=== PATIENT | female | born 1945 | race Caucasian/White ===

== ENCOUNTER 2022-07-24 18:31 | Emergency (ER) | payer OTHER ==
[2022-07-24 19:17] VITALS: BP 159/70; PULSE 83; RESP 15; TEMP 98.4; BMI 26.4
[2022-07-24] MEDS ORDERED: ACETAMINOPHEN 325 MG TABLET (FP) PO ONE (19:55)
[2022-07-24] MEDS ORDERED: ACETAMINOPHEN 325 MG TABLET (FP) ONE (21:21)
[2022-07-24 21:38] LABS: BASO % 0.3 % (0-2.0); EOS % 0.6 % (0-4.5); HEMATOCRIT 33.6 % (32.4-45.2); HEMOGLOBIN 11.1 GM/dL (10.7-15.3); LYMPH % 9.1 % (8-40); MCH 27.3 pg (25.7-33.7); MCHC 32.9 g/dl (32.0-36.0); MEAN CELL VOLUME 82.8 fl (80-96); MEAN PLT VOLUME 6.5 fl (7.5-11.1); MONO % 5.8 % (3.8-10.2); NEUT % 84.2 % (42.8-82.8); PLATELET COUNT 223 10^3/uL (134-434); RBC 4.06 M/mm3 (3.60-5.2); RDW 15.5 % (11.6-15.6); WHITE BLOOD COUNT 12.6 K/mm3 (4.0-10.0)
[2022-07-24 21:56] LABS: ALBUMIN 2.9 g/dl (3.4-5.0); BLOOD UREA NITROGEN 75.4 mg/dL (7-18); CALCIUM 8.8 mg/dL (8.5-10.1)
[2022-07-24 22:01] LABS: BILIRUBIN,TOTAL 0.4 mg/dL (0.2-1); TOT PROT 6.7 g/dl (6.4-8.2)
== END 2022-07-24 23:31 | disposition left against medical advice (07) ==
LOC: JER 18:31
DX: N19 Unspecified kidney failure (principal); M25.571 Pain in right ankle and joints of right foot; R26.2 Difficulty in walking, not elsewhere classified; R60.0 Localized edema
CPT/HCPCS: 36415; 73610-TC-RT-FY; 73630-TC-RT-FY; 80053; 85025; 99284-25

== ENCOUNTER 2022-08-10 14:24 | Inpatient (IN) | payer OTHER ==
[2022-08-10 15:37] LABS: INR 1.09 (0.83-1.09); PROTHROMBIN TIME (PATIENT) 12.5 SEC (9.7-13.0)
[2022-08-10 15:41] LABS: HEMATOCRIT 31.6 % (32.4-45.2); HEMOGLOBIN 10.3 G/dL (10.7-15.3); MCHC 32.6 g/dl (32.0-36.0); MEAN PLT VOLUME 7.4 fl (7.5-11.1); PLATELET COUNT 201.4 10^3/uL (134-434); RBC 3.68 10^6/uL (3.60-5.2); RDW 15.2 % (11.6-15.6); WHITE BLOOD COUNT 10.7 10^3/uL (4.0-10.8)
[2022-08-10 15:49] LABS: ALBUMIN 3.1 g/dl (3.4-5.0); BILIRUBIN,TOTAL 0.4 mg/dl (0.2-1); CALCIUM 8.3 mg/dl (8.5-10); CREATININE 5.9 mg/dl (0.55-1.3); MAGNESIUM 2.3 mg/dL (1.8-2.4); PHOSPHOROUS 9.4 mg/dl (2.5-4.9); POTASSIUM 4.2 mmol/L (3.5-5.1); TOT PROT 6.8 g/dl (6.4-8.2)
[2022-08-10 16:29] LABS: EPITHELIAL CELLS MODERATE /hpf
[2022-08-10] MEDS ORDERED: SODIUM CHLORIDE 0.45% 1,000 ML IV SCH (21:45)
[2022-08-10] MEDS: hydrALAZINE HCL 50 MG TABLET (FP) PO SCH (22:03)
[2022-08-10] MEDS: HEPARIN NA (PORCINE) 5,000 UNITS/ML 1ML VIAL SQ SCH (22:04)
[2022-08-10] MEDS: CEFTRIAXONE 1 GM in DEXTROSE 5%-WATER - 50 ML IVPB SCH (22:04)
[2022-08-10] MEDS: ATORVASTATIN CA 80 MG TABLET (FP) PO SCH (22:14)
[2022-08-10] MEDS: INSULIN SLIDING SCALE (NOVOLOG) 1 VIAL SQ SCH (22:28)
[2022-08-11] MEDS: INSULIN SLIDING SCALE (NOVOLOG) 1 VIAL SQ SCH ×4 (06:16→22:00)
[2022-08-11 06:24] VITALS: BMI 32.8
[2022-08-11 10:06] LABS: CHLORIDE 117 mmol/L (98-107); POTASSIUM 4.4 mmol/L (3.5-5.1); SODIUM 144 mmol/L (136-145)
[2022-08-11 10:14] LABS: ALBUMIN 2.5 g/dl (3.4-5.0); ANION GAP 11 MMOL/L (8-16); CO2 16 mmol/L (21-32); GLUCOSE,RANDOM 80 mg/dL (74-106); MAGNESIUM 2.2 mg/dL (1.8-2.4)
[2022-08-11 10:17] LABS: PHOSPHOROUS 8.8 mg/dL (2.5-4.9); SGOT/AST 10 U/L (15-37); SGPT/ALT 12 U/L (13-61)
[2022-08-11 10:18] LABS: TOT PROT 5.9 g/dl (6.4-8.2)
[2022-08-11 10:19] LABS: BILIRUBIN,TOTAL 0.4 mg/dL (0.2-1)
[2022-08-11 10:20] LABS: ALK PHOS 69 U/L (45-117)
[2022-08-11 10:32] LABS: BLOOD UREA NITROGEN 117.5 mg/dL (7-18)
[2022-08-11 10:51] LABS: BASO % 0.4 % (0-2.0); EOS % 1.9 % (0-4.5); HEMATOCRIT 26.6 % (32.4-45.2); HEMOGLOBIN 9.1 GM/dL (10.7-15.3); MCH 28.5 pg (25.7-33.7); MCHC 34.2 g/dl (32.0-36.0); MEAN CELL VOLUME 83.2 fl (80-96); MEAN PLT VOLUME 6.5 fl (7.5-11.1); MONO % 4.2 % (3.8-10.2); NEUT % 80.5 % (42.8-82.8); PLATELET COUNT 191 10^3/uL (134-434); RDW 15.1 % (11.6-15.6); WHITE BLOOD COUNT 9.6 K/mm3 (4.0-10.0)
[2022-08-11] MEDS: PANTOPRAZOLE 40 MG TABLET PO SCH (12:30)
[2022-08-11] MEDS: NEBIVOLOL 5 MG TABLET (FP) PO SCH (12:30)
[2022-08-11] MEDS: HEPARIN NA (PORCINE) 5,000 UNITS/ML 1ML VIAL SQ SCH ×2 (12:30→21:26)
[2022-08-11] MEDS: CEFTRIAXONE 1 GM in DEXTROSE 5%-WATER - 50 ML IVPB SCH (12:30)
[2022-08-11] MEDS: hydrALAZINE HCL 50 MG TABLET (FP) PO SCH ×2 (12:30→21:26)
[2022-08-11] MEDS: SODIUM BICARBONATE 650 MG TABLET PO SCH ×2 (14:06→21:26)
[2022-08-11] MEDS: CALCIUM ACETATE 667 MG CAPSULE (FP) PO SCH (16:49)
[2022-08-11] MEDS: ATORVASTATIN CA 80 MG TABLET (FP) PO SCH (21:26)
[2022-08-12] MEDS: SODIUM BICARBONATE 650 MG TABLET PO SCH ×3 (05:36→21:57)
[2022-08-12] MEDS: INSULIN SLIDING SCALE (NOVOLOG) 1 VIAL SQ SCH ×4 (06:44→22:06)
[2022-08-12] MEDS: CALCIUM ACETATE 667 MG CAPSULE (FP) PO SCH ×3 (08:45→17:19)
[2022-08-12] MEDS: NEBIVOLOL 5 MG TABLET (FP) PO SCH (09:46)
[2022-08-12] MEDS: PANTOPRAZOLE 40 MG TABLET PO SCH (09:46)
[2022-08-12] MEDS: hydrALAZINE HCL 50 MG TABLET (FP) PO SCH ×2 (09:46→21:58)
[2022-08-12] MEDS: HEPARIN NA (PORCINE) 5,000 UNITS/ML 1ML VIAL SQ SCH ×2 (09:46→21:58)
[2022-08-12 10:14] LABS: HEMATOCRIT 29.1 % (32.4-45.2); HEMOGLOBIN 9.7 GM/dL (10.7-15.3); MCH 27.8 pg (25.7-33.7); MCHC 33.3 g/dl (32.0-36.0); MEAN CELL VOLUME 83.3 fl (80-96); MEAN PLT VOLUME 6.9 fl (7.5-11.1); PLATELET COUNT 219 10^3/uL (134-434); RBC 3.49 M/mm3 (3.60-5.2); RDW 15.4 % (11.6-15.6); WHITE BLOOD COUNT 9.7 K/mm3 (4.0-10.0)
[2022-08-12 10:36] LABS: CHLORIDE 120 mmol/L (98-107); POTASSIUM 4.3 mmol/L (3.5-5.1); SODIUM 145 mmol/L (136-145)
[2022-08-12 10:40] LABS: CALCIUM 8.5 mg/dL (8.5-10.1)
[2022-08-12 10:41] LABS: ALBUMIN 2.5 g/dl (3.4-5.0); ANION GAP 9 MMOL/L (8-16); CO2 16 mmol/L (21-32); GLUCOSE,RANDOM 95 mg/dL (74-106)
[2022-08-12 10:44] LABS: SGOT/AST 12 U/L (15-37); SGPT/ALT 12 U/L (13-61)
[2022-08-12 10:45] LABS: BILIRUBIN,TOTAL 0.3 mg/dL (0.2-1); TOT PROT 6.2 g/dl (6.4-8.2)
[2022-08-12 10:47] LABS: ALK PHOS 68 U/L (45-117)
[2022-08-12 11:06] LABS: BLOOD UREA NITROGEN 120.4 mg/dL (7-18); CREATININE 8.2 mg/dL (0.55-1.3)
[2022-08-12] MEDS ORDERED: SODIUM CHLORIDE 250 ML IV PRN (13:27)
[2022-08-12] MEDS: ATORVASTATIN CA 80 MG TABLET (FP) PO SCH (21:57)
[2022-08-13] MEDS: SODIUM BICARBONATE 650 MG TABLET PO SCH ×3 (05:56→22:51)
[2022-08-13] MEDS: INSULIN SLIDING SCALE (NOVOLOG) 1 VIAL SQ SCH ×4 (07:00→23:07)
[2022-08-13] MEDS: CALCIUM ACETATE 667 MG CAPSULE (FP) PO SCH ×3 (09:01→17:58)
[2022-08-13] MEDS: hydrALAZINE HCL 50 MG TABLET (FP) PO SCH ×2 (09:41→22:51)
[2022-08-13] MEDS: PANTOPRAZOLE 40 MG TABLET PO SCH (09:42)
[2022-08-13] MEDS: HEPARIN NA (PORCINE) 5,000 UNITS/ML 1ML VIAL SQ SCH ×2 (09:42→22:51)
[2022-08-13] MEDS: NEBIVOLOL 5 MG TABLET (FP) PO SCH (09:42)
[2022-08-13 11:22] LABS: HEMATOCRIT 28.1 % (32.4-45.2); HEMOGLOBIN 9.4 GM/dL (10.7-15.3); MCH 27.7 pg (25.7-33.7); MCHC 33.4 g/dl (32.0-36.0); MEAN CELL VOLUME 82.9 fl (80-96); MEAN PLT VOLUME 6.8 fl (7.5-11.1); PLATELET COUNT 175 10^3/uL (134-434); RBC 3.39 M/mm3 (3.60-5.2); RDW 14.9 % (11.6-15.6); WHITE BLOOD COUNT 9.7 K/mm3 (4.0-10.0)
[2022-08-13] MEDS ORDERED: INSULIN SLIDING SCALE (NOVOLOG) 1 VIAL SQ ONE ×2 (11:26→17:29)
[2022-08-13 11:39] LABS: POTASSIUM 3.3 mmol/L (3.5-5.1)
[2022-08-13 11:43] LABS: ALBUMIN 2.4 g/dl (3.4-5.0); CALCIUM 8.4 mg/dL (8.5-10.1)
[2022-08-13 11:46] LABS: CREATININE 5.5 mg/dL (0.55-1.3)
[2022-08-13 11:47] LABS: PHOSPHOROUS 4.1 mg/dL (2.5-4.9)
[2022-08-13 11:48] LABS: BILIRUBIN,TOTAL 0.6 mg/dL (0.2-1); TOT PROT 5.7 g/dl (6.4-8.2)
[2022-08-13 11:50] LABS: BLOOD UREA NITROGEN 66.1 mg/dL (7-18)
[2022-08-13] MEDS: ATORVASTATIN CA 80 MG TABLET (FP) PO SCH (22:51)
[2022-08-14] MEDS: SODIUM BICARBONATE 650 MG TABLET PO SCH ×3 (06:53→21:02)
[2022-08-14] MEDS: INSULIN SLIDING SCALE (NOVOLOG) 1 VIAL SQ SCH ×4 (07:44→21:02)
[2022-08-14] MEDS: CALCIUM ACETATE 667 MG CAPSULE (FP) PO SCH ×3 (09:01→17:21)
[2022-08-14] MEDS: PANTOPRAZOLE 40 MG TABLET PO SCH (09:02)
[2022-08-14] MEDS: NEBIVOLOL 5 MG TABLET (FP) PO SCH (09:02)
[2022-08-14] MEDS: hydrALAZINE HCL 50 MG TABLET (FP) PO SCH ×2 (09:02→21:02)
[2022-08-14] MEDS: HEPARIN NA (PORCINE) 5,000 UNITS/ML 1ML VIAL SQ SCH ×2 (09:03→21:02)
[2022-08-14 11:26] LABS: HEMATOCRIT 28.8 % (32.4-45.2); HEMOGLOBIN 9.6 GM/dL (10.7-15.3); MCH 27.9 pg (25.7-33.7); MCHC 33.3 g/dl (32.0-36.0); MEAN CELL VOLUME 83.6 fl (80-96); PLATELET COUNT 195 10^3/uL (134-434); RBC 3.45 M/mm3 (3.60-5.2); RDW 15.3 % (11.6-15.6)
[2022-08-14] MEDS ORDERED: SODIUM CHLORIDE 250 ML IV PRN (11:35)
[2022-08-14 12:06] LABS: POTASSIUM 3.6 mmol/L (3.5-5.1)
[2022-08-14 12:29] LABS: ALBUMIN 2.6 g/dl (3.4-5.0); BLOOD UREA NITROGEN 68.4 mg/dL (7-18)
[2022-08-14 12:32] LABS: CREATININE 6.2 mg/dL (0.55-1.3)
[2022-08-14 12:33] LABS: BILIRUBIN,TOTAL 0.4 mg/dL (0.2-1); TOT PROT 6.2 g/dl (6.4-8.2)
[2022-08-14] MEDS: ATORVASTATIN CA 80 MG TABLET (FP) PO SCH (21:02)
[2022-08-14 22:07] LABS: ANTIGLOMERULAR BASEMENT MEN.AB <0.2 units (0.0-0.9)
[2022-08-15] MEDS: SODIUM BICARBONATE 650 MG TABLET PO SCH ×3 (05:48→21:57)
[2022-08-15] MEDS: INSULIN SLIDING SCALE (NOVOLOG) 1 VIAL SQ SCH ×4 (06:09→21:57)
[2022-08-15] MEDS: CALCIUM ACETATE 667 MG CAPSULE (FP) PO SCH ×3 (09:03→18:13)
[2022-08-15] MEDS: PANTOPRAZOLE 40 MG TABLET PO SCH (09:44)
[2022-08-15] MEDS: hydrALAZINE HCL 50 MG TABLET (FP) PO SCH ×2 (09:44→21:57)
[2022-08-15] MEDS: NEBIVOLOL 5 MG TABLET (FP) PO SCH (09:56)
[2022-08-15] MEDS: HEPARIN NA (PORCINE) 5,000 UNITS/ML 1ML VIAL SQ SCH ×2 (10:01→21:57)
[2022-08-15] MEDS ORDERED: SODIUM CHLORIDE 250 ML IV PRN (14:43)
[2022-08-15 16:08] LABS: ATYPICAL pANCA <1:20 titer (Neg:<1:20); C-ANCA <1:20 titer (Neg:<1:20)
[2022-08-15] MEDS: ATORVASTATIN CA 80 MG TABLET (FP) PO SCH (21:57)
[2022-08-16] MEDS: SODIUM BICARBONATE 650 MG TABLET PO SCH ×3 (05:23→22:02)
[2022-08-16] MEDS: INSULIN SLIDING SCALE (NOVOLOG) 1 VIAL SQ SCH ×4 (06:14→22:10)
[2022-08-16 08:35] LABS: HEMATOCRIT 26.9 % (32.4-45.2); HEMOGLOBIN 9.2 GM/dL (10.7-15.3); MCH 28.4 pg (25.7-33.7); MCHC 34.2 g/dl (32.0-36.0); MEAN CELL VOLUME 83.3 fl (80-96); MEAN PLT VOLUME 7.2 fl (7.5-11.1); PLATELET COUNT 192 10^3/uL (134-434); RBC 3.24 M/mm3 (3.60-5.2); RDW 14.6 % (11.6-15.6); WHITE BLOOD COUNT 10.5 K/mm3 (4.0-10.0)
[2022-08-16 08:51] LABS: CALCIUM 8.6 mg/dL (8.5-10.1); POTASSIUM 3.8 mmol/L (3.5-5.1)
[2022-08-16 08:53] LABS: BLOOD UREA NITROGEN 48.8 mg/dL (7-18)
[2022-08-16 08:55] LABS: CREATININE 5.2 mg/dL (0.55-1.3)
[2022-08-16] MEDS: NEBIVOLOL 5 MG TABLET (FP) PO SCH (09:06)
[2022-08-16] MEDS: hydrALAZINE HCL 50 MG TABLET (FP) PO SCH ×2 (09:06→22:02)
[2022-08-16] MEDS: CALCIUM ACETATE 667 MG CAPSULE (FP) PO SCH ×3 (09:06→18:04)
[2022-08-16] MEDS: PANTOPRAZOLE 40 MG TABLET PO SCH (09:06)
[2022-08-16] MEDS: HEPARIN NA (PORCINE) 5,000 UNITS/ML 1ML VIAL SQ SCH ×2 (09:07→22:02)
[2022-08-16] MEDS ORDERED: LIDOCAINE HCL 1%, 10 MG/ML (10ML VIAL) MDV ONE (11:24)
[2022-08-16] MEDS ORDERED: MIDAZOLAM HCL 2 MG/2 ML SINGLE DOSE VIAL ONE (13:01)
[2022-08-16] MEDS ORDERED: ceFAZolin SODIUM 1 GM VIAL ONE (13:08)
[2022-08-16] MEDS ORDERED: LIDOCAINE HCL 1%, 10 MG/ML (50 mL VIAL) INF ONE (13:17)
[2022-08-16] MEDS ORDERED: PROPOFOL 20 ML ONE (13:21)
[2022-08-16] MEDS ORDERED: SODIUM CHLORIDE 250 ML IV PRN (14:30)
[2022-08-16] MEDS ORDERED: HEPARIN NA (PORCINE) 5,000 UNITS/ML 1ML VIAL IVPUSH ONE ×2 (14:43)
[2022-08-16] MEDS ORDERED: EPOETIN ALFA-EPBX 4,000 UNIT/ML VIAL SQ ONE ×3 (14:43→15:00)
[2022-08-16 15:11] VITALS: RESP 18
[2022-08-16] MEDS ORDERED: ATORVASTATIN CA 80 MG TABLET (FP) PO SCH (22:00)
[2022-08-17] MEDS: SODIUM BICARBONATE 650 MG TABLET PO SCH ×2 (05:22→15:19)
[2022-08-17] MEDS: INSULIN SLIDING SCALE (NOVOLOG) 1 VIAL SQ SCH ×3 (06:08→17:29)
[2022-08-17] MEDS: CALCIUM ACETATE 667 MG CAPSULE (FP) PO SCH ×3 (07:59→17:30)
[2022-08-17] MEDS: HEPARIN NA (PORCINE) 5,000 UNITS/ML 1ML VIAL SQ SCH (09:32)
[2022-08-17] MEDS: hydrALAZINE HCL 50 MG TABLET (FP) PO SCH (09:32)
[2022-08-17] MEDS ORDERED: PANTOPRAZOLE 40 MG TABLET PO SCH (10:00)
[2022-08-17] MEDS ORDERED: NEBIVOLOL 5 MG TABLET (FP) PO SCH (10:00)
[2022-08-17] MEDS ORDERED: SODIUM CHLORIDE 250 ML IV PRN (12:49)
[2022-08-17 18:20] VITALS: BP 144/64; PULSE 64; TEMP 98
== END 2022-08-17 19:12 | disposition home or self-care (01) | DRG 682 ==
LOC: FER 14:24 → J5S 21:31
PROVIDERS: ADMIT Family Medicine; ATTEND Family Medicine
PROC: 05HM33Z Insertion of Infusion Device into Right Internal Jugular Vein, Percutaneous Approach (ICD-10-PCS; principal; 2022-08-12)
PROC: B543ZZA Ultrasonography of Right Jugular Veins, Guidance (ICD-10-PCS; 2022-08-12)
PROC: 5A1D70Z Performance of Urinary Filtration, Intermittent, Less than 6 Hours Per Day (ICD-10-PCS; 2022-08-12)
PROC: 5A1D70Z Performance of Urinary Filtration, Intermittent, Less than 6 Hours Per Day (ICD-10-PCS; 2022-08-14)
PROC: 5A1D70Z Performance of Urinary Filtration, Intermittent, Less than 6 Hours Per Day (ICD-10-PCS; 2022-08-16)
PROC: 05HM33Z Insertion of Infusion Device into Right Internal Jugular Vein, Percutaneous Approach (ICD-10-PCS; 2022-08-16)
PROC: B513ZZA Fluoroscopy of Right Jugular Veins, Guidance (ICD-10-PCS; 2022-08-16)
PROC: 5A1D70Z Performance of Urinary Filtration, Intermittent, Less than 6 Hours Per Day (ICD-10-PCS; 2022-08-17)
DX: I12.0 Hypertensive chronic kidney disease with stage 5 chronic kidney disease or end stage renal disease (principal); N18.6 End stage renal disease; N17.9 Acute kidney failure, unspecified; E87.20 Acidosis, unspecified; I31.39 Other pericardial effusion (noninflammatory); N39.0 Urinary tract infection, site not specified; E11.22 Type 2 diabetes mellitus with diabetic chronic kidney disease; Z99.2 Dependence on renal dialysis; E78.5 Hyperlipidemia, unspecified; D64.9 Anemia, unspecified; R80.9 Proteinuria, unspecified; R93.1 Abnormal findings on diagnostic imaging of heart and coronary circulation; R76.0 Raised antibody titer; R82.71 Bacteriuria; B96.20 Unspecified Escherichia coli [E. coli] as the cause of diseases classified elsewhere; B95.2 Enterococcus as the cause of diseases classified elsewhere; B96.5 Pseudomonas (aeruginosa) (mallei) (pseudomallei) as the cause of diseases classified elsewhere; E66.9 Obesity, unspecified; Z68.32 Body mass index [BMI] 32.0-32.9, adult
CPT/HCPCS: 0241U-QW; 36415; 71045-TC-FY; 71250-TC; 74176-TC; 76000-TC-FY; 76775-TC; 76856-TC; 80048; 80053; 81003; 81015; 82962; 83516; 83520; 83735; 84100; 84155; 84165; 84443; 84484; 85025; 85027; 85610; 85651; 86038; 86140; 86160; 86225; 86235; 86256; 86704; 86705; 86803; 87040; 87086; 87186; 87340; 87517; 93005; 93306-TC; 93971-TC; 94760; 97116-GP; 97162-GP; 99285-25; C1750; J1644; Q5106

== ENCOUNTER 2022-09-01 21:27 | Observation (INO) | payer OTHER ==
[2022-09-01 21:37] VITALS: BMI 27.3
[2022-09-01 22:39] LABS: BASO % 0.4 % (0-2.0); EOS % 1.8 % (0-4.5); HEMATOCRIT 29.8 % (32.4-45.2); LYMPH % 17.8 % (8-40); MCH 28.7 pg (25.7-33.7); MCHC 33.5 g/dl (32.0-36.0); MEAN CELL VOLUME 85.7 fl (80-96); MEAN PLT VOLUME 7.4 fl (7.5-11.1); MONO % 6.3 % (3.8-10.2); NEUT % 73.7 % (42.8-82.8); PLATELET COUNT 253 10^3/uL (134-434); RBC 3.48 M/mm3 (3.60-5.2); RDW 15.3 % (11.6-15.6); WHITE BLOOD COUNT 10.4 K/mm3 (4.0-10.0)
[2022-09-02 00:24] LABS: ALBUMIN 3.1 g/dl (3.4-5.0); BILIRUBIN,TOTAL 0.7 mg/dL (0.2-1); BLOOD UREA NITROGEN 35.6 mg/dL (7-18); CALCIUM 8.8 mg/dL (8.5-10.1); CREATININE 5.2 mg/dL (0.55-1.3); POTASSIUM 4.8 mmol/L (3.5-5.1); TOT PROT 6.9 g/dl (6.4-8.2)
[2022-09-02 06:25] LABS: BASO % 0.7 % (0-2.0); EOS % 2.3 % (0-4.5); HEMATOCRIT 26.9 % (32.4-45.2); HEMOGLOBIN 9.3 GM/dL (10.7-15.3); LYMPH % 24.8 % (8-40); MCHC 34.5 g/dl (32.0-36.0); MEAN CELL VOLUME 84.3 fl (80-96); NEUT % 66.2 % (42.8-82.8); PLATELET COUNT 197 10^3/uL (134-434); RBC 3.19 M/mm3 (3.60-5.2); RDW 15.1 % (11.6-15.6); WHITE BLOOD COUNT 9.3 K/mm3 (4.0-10.0)
[2022-09-02 06:41] LABS: POTASSIUM 3.9 mmol/L (3.5-5.1)
[2022-09-02 06:45] LABS: BLOOD UREA NITROGEN 38.1 mg/dL (7-18); CALCIUM 8.9 mg/dL (8.5-10.1)
[2022-09-02 06:48] LABS: CREATININE 5.5 mg/dL (0.55-1.3)
[2022-09-02 06:49] LABS: BILIRUBIN,TOTAL 0.5 mg/dL (0.2-1); TOT PROT 6.4 g/dl (6.4-8.2)
[2022-09-02] MEDS ORDERED: hydrALAZINE HCL 50 MG TABLET (FP) PO SCH (10:00)
[2022-09-02] MEDS ORDERED: SODIUM CHLORIDE 250 ML IV PRN (11:02)
[2022-09-02] MEDS: hydrALAZINE HCL 50 MG TABLET (FP) PO SCH ×2 (12:20→21:54)
[2022-09-02] MEDS: ASPIRIN COATED 81 MG TABLET.EC PO SCH (12:23)
[2022-09-02] MEDS ORDERED: ALTEPLASE (CATHFLO) 2 MG/2 ML VIAL NR ONE ×2 (13:45)
[2022-09-02] MEDS: ATORVASTATIN CA 80 MG TABLET (FP) PO SCH (21:54)
[2022-09-03 08:58] LABS: BASO % 0.4 % (0-2.0); EOS % 2.2 % (0-4.5); HEMATOCRIT 28.8 % (32.4-45.2); HEMOGLOBIN 9.7 GM/dL (10.7-15.3); LYMPH % 18.4 % (8-40); MCH 28.6 pg (25.7-33.7); MCHC 33.6 g/dl (32.0-36.0); MEAN PLT VOLUME 6.9 fl (7.5-11.1); MONO % 5.3 % (3.8-10.2); NEUT % 73.7 % (42.8-82.8); PLATELET COUNT 198 10^3/uL (134-434); RBC 3.39 M/mm3 (3.60-5.2); RDW 15.4 % (11.6-15.6); WHITE BLOOD COUNT 10.5 K/mm3 (4.0-10.0)
[2022-09-03 09:18] LABS: POTASSIUM 3.8 mmol/L (3.5-5.1)
[2022-09-03 09:20] LABS: ALBUMIN 3.1 g/dl (3.4-5.0); CALCIUM 8.9 mg/dL (8.5-10.1)
[2022-09-03 09:23] LABS: CREATININE 4.1 mg/dL (0.55-1.3)
[2022-09-03 09:25] LABS: BILIRUBIN,TOTAL 0.5 mg/dL (0.2-1); TOT PROT 6.8 g/dl (6.4-8.2)
[2022-09-03] MEDS: ASPIRIN COATED 81 MG TABLET.EC PO SCH (10:08)
[2022-09-03] MEDS: hydrALAZINE HCL 50 MG TABLET (FP) PO SCH ×2 (10:08→22:05)
[2022-09-03] MEDS: ATORVASTATIN CA 80 MG TABLET (FP) PO SCH (22:05)
[2022-09-04 04:14] VITALS: RESP 18
[2022-09-04 08:31] VITALS: TEMP 98.4
[2022-09-04] MEDS: hydrALAZINE HCL 50 MG TABLET (FP) PO SCH (09:01)
[2022-09-04] MEDS: ASPIRIN COATED 81 MG TABLET.EC PO SCH (09:01)
[2022-09-04 14:35] VITALS: BP 118/51; PULSE 76
== END 2022-09-04 17:50 | disposition home health service (06) ==
LOC: JER 21:27 → JERBED 09-02 02:00 → INTOOBSV 09-02 02:00 → UNDOADMOB 09-02 02:00 → JERBED 09-02 04:00 → J4W 09-02 10:44
PROVIDERS: ADMIT Internal Medicine; ATTEND Family Medicine
DX: G93.41 Metabolic encephalopathy (principal); R41.82 Altered mental status, unspecified; E11.9 Type 2 diabetes mellitus without complications; N18.6 End stage renal disease; E78.5 Hyperlipidemia, unspecified; Z87.891 Personal history of nicotine dependence; Z99.2 Dependence on renal dialysis
CPT/HCPCS: 0241U-QW; 36415; 70450-TC; 71045-TC-FY; 80053; 82962; 83036; 85025; 86803; 87340; 93005; 93010; 97116-GP; 97162-GP; 99285-25; C9803-CS; G0378; J2997; U0003; U0005

== ENCOUNTER 2022-10-26 16:54 | Inpatient (IN) | payer OTHER ==
[2022-10-26 19:10] LABS: INR 2.09 (0.83-1.09); PROTHROMBIN TIME (PATIENT) 24.1 SEC (9.7-13.0)
[2022-10-26 19:19] LABS: BASO % 0.5 % (0-2.0); EOS % 0.3 % (0-4.5); HEMOGLOBIN 9.5 GM/dL (10.7-15.3); LYMPH % 10.3 % (8-40); MCH 28.2 pg (25.7-33.7); MCHC 32.7 g/dl (32.0-36.0); MEAN CELL VOLUME 86.1 fl (80-96); MEAN PLT VOLUME 6.8 fl (7.5-11.1); MONO % 3.8 % (3.8-10.2); NEUT % 85.1 % (42.8-82.8); PLATELET COUNT 309 10^3/uL (134-434); RBC 3.37 M/mm3 (3.60-5.2); RDW 15.2 % (11.6-15.6); WHITE BLOOD COUNT 14.7 K/mm3 (4.0-10.0)
[2022-10-26 19:36] LABS: CHLORIDE 97 mmol/L (98-107); SODIUM 139 mmol/L (136-145)
[2022-10-26 19:40] LABS: ALBUMIN 3.3 g/dl (3.4-5.0); ANION GAP 13 MMOL/L (8-16); BLOOD UREA NITROGEN 46.3 mg/dL (7-18); CALCIUM 9.7 mg/dL (8.5-10.1); CO2 30 mmol/L (21-32); GLUCOSE,RANDOM 92 mg/dL (74-106); MAGNESIUM 2.6 mg/dL (1.8-2.4)
[2022-10-26 19:43] LABS: PHOSPHOROUS 5.2 mg/dL (2.5-4.9); SGOT/AST 34 U/L (15-37); SGPT/ALT 19 U/L (13-61)
[2022-10-26 19:44] LABS: BILIRUBIN,TOTAL 0.4 mg/dL (0.2-1); TOT PROT 7.7 g/dl (6.4-8.2)
[2022-10-26 19:46] LABS: ALK PHOS 92 U/L (45-117)
[2022-10-26 19:58] LABS: CREATININE 7.8 mg/dL (0.55-1.3)
[2022-10-27 06:22] LABS: BASO % 0.7 % (0-2.0); EOS % 1.3 % (0-4.5); HEMATOCRIT 26.5 % (32.4-45.2); HEMOGLOBIN 8.7 GM/dL (10.7-15.3); LYMPH % 15.8 % (8-40); MCH 28.4 pg (25.7-33.7); MEAN CELL VOLUME 86.1 fl (80-96); MEAN PLT VOLUME 6.5 fl (7.5-11.1); MONO % 5.2 % (3.8-10.2); PLATELET COUNT 276 10^3/uL (134-434); RBC 3.08 M/mm3 (3.60-5.2); RDW 15.5 % (11.6-15.6); WHITE BLOOD COUNT 13.4 K/mm3 (4.0-10.0)
[2022-10-27 06:39] LABS: CHLORIDE 98 mmol/L (98-107); SODIUM 139 mmol/L (136-145)
[2022-10-27 06:40] LABS: CALCIUM 9.8 mg/dL (8.5-10.1)
[2022-10-27 06:41] LABS: ANION GAP 13 MMOL/L (8-16); BLOOD UREA NITROGEN 51.6 mg/dL (7-18); CO2 28 mmol/L (21-32); GLUCOSE,RANDOM 83 mg/dL (74-106)
[2022-10-27 06:51] LABS: CREATININE 8.4 mg/dL (0.55-1.3)
[2022-10-27] MEDS ORDERED: ASPIRIN COATED 81 MG TABLET.EC PO SCH (10:00)
[2022-10-27] MEDS: INSULIN SLIDING SCALE (NOVOLOG) 1 VIAL SQ SCH ×2 (12:12→21:57)
[2022-10-27] MEDS: ZINC OXIDE 20% TOPICAL OINTMENT 30 GM TUBE TP SCH ×2 (12:54→22:00)
[2022-10-27] MEDS: APIXABAN 5 MG TABLET PO SCH ×2 (12:55→21:54)
[2022-10-27] MEDS ORDERED: SODIUM CHLORIDE 250 ML IV PRN (13:33)
[2022-10-27] MEDS ORDERED: DEXTROSE 50%-WATER - 25 GM/50 ML VIAL IVPUSH PRN (14:14)
[2022-10-27] MEDS: AMINO ACIDS 4.25%/D5W 1,000 ML IV SCH (14:38)
[2022-10-27] MEDS ORDERED: ATORVASTATIN CA 80 MG TABLET (FP) PO SCH (22:00)
[2022-10-28] MEDS: AMINO ACIDS 4.25%/D5W 1,000 ML IV SCH ×3 (02:15→13:57)
[2022-10-28] MEDS: INSULIN SLIDING SCALE (NOVOLOG) 1 VIAL SQ SCH ×6 (06:38→22:09)
[2022-10-28] MEDS: FAMOTIDINE 20 MG TABLET PO SCH (07:53)
[2022-10-28 08:25] LABS: POTASSIUM 3.3 mmol/L (3.5-5.1)
[2022-10-28 08:31] LABS: BASO % 0.7 % (0-2.0); EOS % 1.8 % (0-4.5); HEMATOCRIT 24.7 % (32.4-45.2); LYMPH % 14.9 % (8-40); MCH 28.3 pg (25.7-33.7); MCHC 32.3 g/dl (32.0-36.0); MEAN CELL VOLUME 87.5 fl (80-96); MONO % 4.7 % (3.8-10.2); NEUT % 77.9 % (42.8-82.8); PLATELET COUNT 320 10^3/uL (134-434); RBC 2.82 M/mm3 (3.60-5.2); RDW 15.1 % (11.6-15.6); RETICULOCYTES 1.92 % (0.5-1.5)
[2022-10-28 08:35] LABS: ALBUMIN 2.8 g/dl (3.4-5.0); BLOOD UREA NITROGEN 29.8 mg/dL (7-18); CREATININE 4.4 mg/dL (0.55-1.3)
[2022-10-28 08:37] LABS: BILIRUBIN,TOTAL 0.5 mg/dL (0.2-1); TOT PROT 6.7 g/dl (6.4-8.2)
[2022-10-28 08:38] LABS: CALCIUM 8.8 mg/dL (8.5-10.1)
[2022-10-28 08:46] LABS: WHITE BLOOD COUNT 16.5 K/mm3 (4.0-10.0)
[2022-10-28] MEDS: ZINC OXIDE 20% TOPICAL OINTMENT 30 GM TUBE TP SCH ×2 (10:07→22:09)
[2022-10-28] MEDS: APIXABAN 5 MG TABLET PO SCH ×2 (12:31→22:08)
[2022-10-28] MEDS: ASPIRIN COATED 81 MG TABLET.EC PO SCH (12:31)
[2022-10-28] MEDS: ATORVASTATIN CA 80 MG TABLET (FP) PO SCH (22:08)
[2022-10-29] MEDS: AMINO ACIDS 4.25%/D5W 1,000 ML IV SCH ×3 (02:30→16:58)
[2022-10-29] MEDS: INSULIN SLIDING SCALE (NOVOLOG) 1 VIAL SQ SCH ×4 (06:28→23:17)
[2022-10-29] MEDS: ASPIRIN COATED 81 MG TABLET.EC PO SCH (09:15)
[2022-10-29] MEDS: APIXABAN 5 MG TABLET PO SCH ×2 (09:16→23:15)
[2022-10-29] MEDS: ZINC OXIDE 20% TOPICAL OINTMENT 30 GM TUBE TP SCH ×2 (10:11→23:18)
[2022-10-29] MEDS: FAMOTIDINE 10 MG TABLET PO SCH (11:44)
[2022-10-29] MEDS ORDERED: SODIUM CHLORIDE 250 ML IV PRN (16:50)
[2022-10-29] MEDS: ACETAMINOPHEN 1000 MG/100 ML BAG IVPB PRN (17:54)
[2022-10-29 18:25] LABS: EPI CELLS >36 /uL (0-25.1); HYALINE CASTS 0 /uL (0-3.1); PH,URINE 5.5 (5.0-8.0); URINE APPEARANCE TURBID; URINE BACTERIA 2885 /uL (0-1359); URINE BILIRUBIN NEGATIVE (NEGATIVE); URINE COLOR YELLOW; URINE GLUCOSE (UA) NEGATIVE (NEGATIVE); URINE KETONE NEGATIVE (NEGATIVE); URINE LEUK ESTERASE 3+ (NEGATIVE); URINE NITRITE POSITIVE (NEGATIVE); URINE PROTEIN 3+ (NEGATIVE); URINE UROBILINOGEN 0.2 mg/dL (0.2-1.0); URINE WBC 1571 /uL (0-25.8)
[2022-10-29 20:00] LABS: YEAST POSITIVE (NEGATIVE)
[2022-10-29] MEDS: ATORVASTATIN CA 80 MG TABLET (FP) PO SCH (23:16)
[2022-10-30] MEDS: AMINO ACIDS 4.25%/D5W 1,000 ML IV SCH ×2 (01:36→15:27)
[2022-10-30] MEDS: INSULIN SLIDING SCALE (NOVOLOG) 1 VIAL SQ SCH ×4 (06:41→21:45)
[2022-10-30] MEDS ORDERED: EPOETIN ALFA-EPBX 3,000 UNIT/ML VIAL IVPUSH ONE (07:30)
[2022-10-30] MEDS: FAMOTIDINE 10 MG TABLET PO SCH (14:26)
[2022-10-30] MEDS: APIXABAN 5 MG TABLET PO SCH ×2 (14:26→21:41)
[2022-10-30] MEDS: ASPIRIN COATED 81 MG TABLET.EC PO SCH (14:26)
[2022-10-30] MEDS: ZINC OXIDE 20% TOPICAL OINTMENT 30 GM TUBE TP SCH ×2 (14:28→21:43)
[2022-10-30] MEDS: ATORVASTATIN CA 80 MG TABLET (FP) PO SCH (21:41)
[2022-10-31] MEDS: AMINO ACIDS 4.25%/D5W 1,000 ML IV SCH ×3 (02:37→17:28)
[2022-10-31] MEDS: INSULIN SLIDING SCALE (NOVOLOG) 1 VIAL SQ SCH ×4 (06:06→21:33)
[2022-10-31] MEDS: ASPIRIN COATED 81 MG TABLET.EC PO SCH (09:45)
[2022-10-31] MEDS: FAMOTIDINE 10 MG TABLET PO SCH (09:45)
[2022-10-31] MEDS: ZINC OXIDE 20% TOPICAL OINTMENT 30 GM TUBE TP SCH ×2 (09:45→21:33)
[2022-10-31] MEDS: APIXABAN 5 MG TABLET PO SCH ×2 (09:45→21:32)
[2022-10-31] MEDS ORDERED: SODIUM CHLORIDE 250 ML IV PRN (10:38)
[2022-10-31 13:51] VITALS: BMI 20.9
[2022-10-31] MEDS: ACETAMINOPHEN 1000 MG/100 ML BAG IVPB PRN (16:00)
[2022-10-31] MEDS ORDERED: ACETAMINOPHEN 500 MG TABLET (FP) PO PRN (17:10)
[2022-10-31] MEDS: ATORVASTATIN CA 80 MG TABLET (FP) PO SCH (21:32)
[2022-11-01] MEDS: INSULIN SLIDING SCALE (NOVOLOG) 1 VIAL SQ SCH ×4 (06:16→22:19)
[2022-11-01 09:15] LABS: BASO % 0.5 % (0-2.0); EOS % 2.2 % (0-4.5); HEMOGLOBIN 7.6 GM/dL (10.7-15.3); LYMPH % 13.6 % (8-40); MCH 28.7 pg (25.7-33.7); MCHC 34.7 g/dl (32.0-36.0); MEAN CELL VOLUME 82.8 fl (80-96); MEAN PLT VOLUME 5.9 fl (7.5-11.1); MONO % 5.8 % (3.8-10.2); NEUT % 77.9 % (42.8-82.8); PLATELET COUNT 176 10^3/uL (134-434); RBC 2.65 M/mm3 (3.60-5.2); RDW 15.6 % (11.6-15.6); WHITE BLOOD COUNT 9.5 K/mm3 (4.0-10.0)
[2022-11-01] MEDS ORDERED: EPOETIN ALFA-EPBX 10,000 UNIT/ML VIAL IVPUSH ONE (10:30)
[2022-11-01 10:57] LABS: CHLORIDE 97 mmol/L (98-107); SODIUM 132 mmol/L (136-145)
[2022-11-01 10:59] LABS: GLUCOSE,RANDOM 109 mg/dL (74-106)
[2022-11-01 11:01] LABS: ALBUMIN 2.5 g/dl (3.4-5.0); ANION GAP 8 MMOL/L (8-16); CO2 26 mmol/L (21-32); MAGNESIUM 1.6 mg/dL (1.8-2.4)
[2022-11-01 11:02] LABS: SGPT/ALT 15 U/L (13-61)
[2022-11-01 11:03] LABS: CREATININE 4.1 mg/dL (0.55-1.3); SGOT/AST 17 U/L (15-37)
[2022-11-01 11:05] LABS: BILIRUBIN,TOTAL 0.5 mg/dL (0.2-1); TOT PROT 5.8 g/dl (6.4-8.2)
[2022-11-01 11:06] LABS: ALK PHOS 65 U/L (45-117); BLOOD UREA NITROGEN 62.1 mg/dL (7-18); PHOSPHOROUS 1.1 mg/dL (2.5-4.9)
[2022-11-01] MEDS ORDERED: POTASSIUM CHLORIDE ORAL LIQUID 20 MEQ/15 ML PO ONE (11:45)
[2022-11-01] MEDS: APIXABAN 5 MG TABLET PO SCH ×2 (11:53→22:18)
[2022-11-01] MEDS: AMINO ACIDS/PROTEIN HYDROLYS 30 ML LIQUID.PKT PO SCH (11:53)
[2022-11-01] MEDS: FAMOTIDINE 10 MG TABLET PO SCH (11:53)
[2022-11-01] MEDS: ASPIRIN COATED 81 MG TABLET.EC PO SCH (11:53)
[2022-11-01] MEDS: ZINC OXIDE 20% TOPICAL OINTMENT 30 GM TUBE TP SCH ×2 (12:10→22:19)
[2022-11-01] MEDS: AMINO ACIDS 4.25%/D5W 1,000 ML IV SCH (12:59)
[2022-11-01] MEDS ORDERED: MAGNESIUM SULF 50% (8.12 MEQ/2 ML-1 GM VIAL) IVPB ONE (14:05)
[2022-11-01 16:03] LABS: HEMATOCRIT 23.2 % (32.4-45.2); HEMOGLOBIN 8.2 GM/dL (10.7-15.3); MCH 28.8 pg (25.7-33.7); MCHC 35.2 g/dl (32.0-36.0); MEAN PLT VOLUME 5.9 fl (7.5-11.1); PLATELET COUNT 180 10^3/uL (134-434); RBC 2.83 M/mm3 (3.60-5.2); RDW 15.4 % (11.6-15.6); WHITE BLOOD COUNT 8.1 K/mm3 (4.0-10.0)
[2022-11-01 16:21] LABS: POTASSIUM 3.2 mmol/L (3.5-5.1)
[2022-11-01 16:25] LABS: CALCIUM 9.1 mg/dL (8.5-10.1)
[2022-11-01 16:27] LABS: CREATININE 1.9 mg/dL (0.55-1.3)
[2022-11-01] MEDS: ATORVASTATIN CA 80 MG TABLET (FP) PO SCH (22:18)
[2022-11-02] MEDS: INSULIN SLIDING SCALE (NOVOLOG) 1 VIAL SQ SCH ×3 (07:34→16:44)
[2022-11-02] MEDS: FAMOTIDINE 10 MG TABLET PO SCH ×2 (09:36→10:18)
[2022-11-02] MEDS: ASPIRIN COATED 81 MG TABLET.EC PO SCH ×2 (09:36→10:19)
[2022-11-02] MEDS: AMINO ACIDS/PROTEIN HYDROLYS 30 ML LIQUID.PKT PO SCH ×2 (09:37→10:19)
[2022-11-02] MEDS: ZINC OXIDE 20% TOPICAL OINTMENT 30 GM TUBE TP SCH ×2 (09:37→21:44)
[2022-11-02] MEDS: APIXABAN 5 MG TABLET PO SCH (09:37)
[2022-11-02 16:13] LABS: INR 1.91 (0.83-1.09)
[2022-11-02] MEDS: ATORVASTATIN CA 80 MG TABLET (FP) PO SCH (21:45)
[2022-11-03] MEDS: INSULIN SLIDING SCALE (NOVOLOG) 1 VIAL SQ SCH ×4 (07:05→23:33)
[2022-11-03] MEDS: AMINO ACIDS/PROTEIN HYDROLYS 30 ML LIQUID.PKT PO SCH (07:42)
[2022-11-03] MEDS ORDERED: SODIUM CHLORIDE 250 ML IV PRN (08:25)
[2022-11-03] MEDS ORDERED: EPOETIN ALFA-EPBX 10,000 UNIT/ML VIAL IVPUSH ONE (09:00)
[2022-11-03] MEDS: ASPIRIN COATED 81 MG TABLET.EC PO SCH (09:13)
[2022-11-03] MEDS: FAMOTIDINE 10 MG TABLET PO SCH (09:13)
[2022-11-03] MEDS: ZINC OXIDE 20% TOPICAL OINTMENT 30 GM TUBE TP SCH ×2 (09:14→23:33)
[2022-11-03] MEDS ORDERED: GLUCAGON 1 MG KIT ONE (09:21)
[2022-11-03] MEDS ORDERED: MIDAZOLAM HCL 2 MG/2 ML SINGLE DOSE VIAL ONE (09:22)
[2022-11-03] MEDS ORDERED: FENTANYL CITRATE/PF 50 MCG/ML VIAL ONE (09:22)
[2022-11-03 13:18] LABS: HEMATOCRIT 23.4 % (32.4-45.2); HEMOGLOBIN 8.1 GM/dL (10.7-15.3); MCH 29.1 pg (25.7-33.7); MCHC 34.5 g/dl (32.0-36.0); MEAN CELL VOLUME 84.2 fl (80-96); MEAN PLT VOLUME 5.9 fl (7.5-11.1); PLATELET COUNT 202 10^3/uL (134-434); RBC 2.78 M/mm3 (3.60-5.2); RDW 15.9 % (11.6-15.6); WHITE BLOOD COUNT 9.6 K/mm3 (4.0-10.0)
[2022-11-03 13:56] LABS: POTASSIUM 3.4 mmol/L (3.5-5.1)
[2022-11-03 13:57] LABS: CALCIUM 9.4 mg/dL (8.5-10.1)
[2022-11-03 13:58] LABS: BLOOD UREA NITROGEN 34.9 mg/dL (7-18)
[2022-11-03 14:01] LABS: CREATININE 4.4 mg/dL (0.55-1.3)
[2022-11-03] MEDS ORDERED: AMINO ACIDS 4.25%/D5W 1,000 ML IV SCH (16:45)
[2022-11-03] MEDS: ATORVASTATIN CA 80 MG TABLET (FP) PO SCH (23:32)
[2022-11-04] MEDS: INSULIN SLIDING SCALE (NOVOLOG) 1 VIAL SQ SCH ×4 (06:00→22:19)
[2022-11-04 08:35] LABS: BASO % 0.7 % (0-2.0); EOS % 1.4 % (0-4.5); HEMATOCRIT 23.2 % (32.4-45.2); HEMOGLOBIN 7.6 GM/dL (10.7-15.3); LYMPH % 14.8 % (8-40); MCH 28.9 pg (25.7-33.7); MCHC 32.9 g/dl (32.0-36.0); MEAN CELL VOLUME 87.8 fl (80-96); MEAN PLT VOLUME 6.5 fl (7.5-11.1); MONO % 7.2 % (3.8-10.2); NEUT % 75.9 % (42.8-82.8); PLATELET COUNT 219 10^3/uL (134-434); RBC 2.65 M/mm3 (3.60-5.2); RDW 16.3 % (11.6-15.6); WHITE BLOOD COUNT 9.5 K/mm3 (4.0-10.0)
[2022-11-04 08:42] LABS: INR 1.5 (0.83-1.09); PROTHROMBIN TIME (PATIENT) 17.3 SEC (9.7-13.0)
[2022-11-04 08:55] LABS: POTASSIUM 3.3 mmol/L (3.5-5.1)
[2022-11-04 09:03] LABS: ALBUMIN 2.6 g/dl (3.4-5.0); BLOOD UREA NITROGEN 30.7 mg/dL (7-18)
[2022-11-04 09:06] LABS: CREATININE 2.9 mg/dL (0.55-1.3)
[2022-11-04 09:08] LABS: BILIRUBIN,TOTAL 0.7 mg/dL (0.2-1); TOT PROT 6.2 g/dl (6.4-8.2)
[2022-11-04] MEDS: ASPIRIN COATED 81 MG TABLET.EC PO SCH (09:55)
[2022-11-04] MEDS: AMINO ACIDS/PROTEIN HYDROLYS 30 ML LIQUID.PKT PO SCH (09:55)
[2022-11-04] MEDS: FAMOTIDINE 10 MG TABLET PO SCH (09:55)
[2022-11-04] MEDS: ZINC OXIDE 20% TOPICAL OINTMENT 30 GM TUBE TP SCH ×2 (10:40→22:18)
[2022-11-04] MEDS: KCL 10 MEQ IVPB 10 MEQ/100 ML INFUS.BAG IVPB SCH ×2 (12:01→13:44)
[2022-11-04] MEDS ORDERED: POTASSIUM CHLORIDE ORAL LIQUID 20 MEQ/15 ML PO ONE (12:45)
[2022-11-04] MEDS: ATORVASTATIN CA 80 MG TABLET (FP) PO SCH (22:10)
[2022-11-04] MEDS ORDERED: INSULIN (NOVOLOG) ASPART 100 UNITS/ML 10ML VIAL ONE (22:17)
[2022-11-05] MEDS ORDERED: INSULIN (NOVOLOG) ASPART 100 UNITS/ML 10ML VIAL ONE ×2 (06:46→21:41)
[2022-11-05] MEDS: INSULIN SLIDING SCALE (NOVOLOG) 1 VIAL SQ SCH ×4 (06:51→21:45)
[2022-11-05 09:28] LABS: INR 1.26 (0.83-1.09); PROTHROMBIN TIME (PATIENT) 14.6 SEC (9.7-13.0)
[2022-11-05 09:35] LABS: BASO % 0.3 % (0-2.0); EOS % 1.5 % (0-4.5); HEMATOCRIT 32.3 % (32.4-45.2); HEMOGLOBIN 11.3 GM/dL (10.7-15.3); LYMPH % 12.6 % (8-40); MCH 29.7 pg (25.7-33.7); MEAN CELL VOLUME 84.9 fl (80-96); MEAN PLT VOLUME 6.3 fl (7.5-11.1); MONO % 4.5 % (3.8-10.2); NEUT % 81.1 % (42.8-82.8); PLATELET COUNT 257 10^3/uL (134-434); RDW 15.6 % (11.6-15.6); WHITE BLOOD COUNT 11.7 K/mm3 (4.0-10.0)
[2022-11-05 09:43] LABS: POTASSIUM 3.5 mmol/L (3.5-5.1)
[2022-11-05 09:50] LABS: CREATININE 3.8 mg/dL (0.55-1.3)
[2022-11-05 09:51] LABS: ALBUMIN 2.7 g/dl (3.4-5.0); BLOOD UREA NITROGEN 44.5 mg/dL (7-18)
[2022-11-05 09:52] LABS: BILIRUBIN,TOTAL 0.8 mg/dL (0.2-1); CALCIUM 9.3 mg/dL (8.5-10.1); TOT PROT 6.4 g/dl (6.4-8.2)
[2022-11-05] MEDS: AMINO ACIDS/PROTEIN HYDROLYS 30 ML LIQUID.PKT PO SCH (10:36)
[2022-11-05] MEDS: ASPIRIN COATED 81 MG TABLET.EC PO SCH (10:36)
[2022-11-05] MEDS: FAMOTIDINE 10 MG TABLET PO SCH (10:36)
[2022-11-05] MEDS: ZINC OXIDE 20% TOPICAL OINTMENT 30 GM TUBE TP SCH ×2 (10:36→21:34)
[2022-11-05] MEDS: ATORVASTATIN CA 80 MG TABLET (FP) PO SCH (21:34)
[2022-11-06] MEDS: INSULIN SLIDING SCALE (NOVOLOG) 1 VIAL SQ SCH ×4 (06:19→22:00)
[2022-11-06] MEDS: AMINO ACIDS/PROTEIN HYDROLYS 30 ML LIQUID.PKT PO SCH (07:45)
[2022-11-06] MEDS ORDERED: SODIUM CHLORIDE 250 ML IV PRN (07:49)
[2022-11-06] MEDS ORDERED: EPOETIN ALFA-EPBX 10,000 UNIT/ML VIAL SQ ONE (09:00)
[2022-11-06] MEDS: ASPIRIN COATED 81 MG TABLET.EC PO SCH (09:28)
[2022-11-06] MEDS: ZINC OXIDE 20% TOPICAL OINTMENT 30 GM TUBE TP SCH ×2 (12:35→21:36)
[2022-11-06] MEDS: FAMOTIDINE 10 MG TABLET PO SCH (12:36)
[2022-11-06] MEDS: ATORVASTATIN CA 80 MG TABLET (FP) PO SCH (21:36)
[2022-11-07] MEDS: INSULIN SLIDING SCALE (NOVOLOG) 1 VIAL SQ SCH ×4 (07:17→21:40)
[2022-11-07] MEDS: AMINO ACIDS/PROTEIN HYDROLYS 30 ML LIQUID.PKT PO SCH (08:26)
[2022-11-07] MEDS: ZINC OXIDE 20% TOPICAL OINTMENT 30 GM TUBE TP SCH ×2 (09:02→21:35)
[2022-11-07] MEDS: FAMOTIDINE 10 MG TABLET PO SCH (09:05)
[2022-11-07 13:17] LABS: POTASSIUM 3.5 mmol/L (3.5-5.1)
[2022-11-07] MEDS ORDERED: SODIUM CHLORIDE 250 ML IV PRN (13:19)
[2022-11-07 13:20] LABS: ALBUMIN 2.4 g/dl (3.4-5.0); BLOOD UREA NITROGEN 39.1 mg/dL (7-18); CALCIUM 8.8 mg/dL (8.5-10.1)
[2022-11-07 13:24] LABS: CREATININE 3.7 mg/dL (0.55-1.3)
[2022-11-07 13:25] LABS: BILIRUBIN,TOTAL 0.9 mg/dL (0.2-1); TOT PROT 6.1 g/dl (6.4-8.2)
[2022-11-07 13:27] LABS: BASO % 0.7 % (0-2.0); EOS % 0.4 % (0-4.5); HEMATOCRIT 31.8 % (32.4-45.2); HEMOGLOBIN 10.3 GM/dL (10.7-15.3); LYMPH % 10.8 % (8-40); MCH 28.1 pg (25.7-33.7); MCHC 32.4 g/dl (32.0-36.0); MEAN CELL VOLUME 86.9 fl (80-96); MEAN PLT VOLUME 6.4 fl (7.5-11.1); MONO % 5.7 % (3.8-10.2); NEUT % 82.4 % (42.8-82.8); PLATELET COUNT 234 10^3/uL (134-434); RBC 3.66 M/mm3 (3.60-5.2); RDW 15.8 % (11.6-15.6); WHITE BLOOD COUNT 12.2 K/mm3 (4.0-10.0)
[2022-11-07] MEDS ORDERED: INSULIN (NOVOLOG) ASPART 100 UNITS/ML 10ML VIAL ONE ×2 (16:45→21:39)
[2022-11-07] MEDS: dilTIAZem HCL 30 MG TABLET NGT SCH (17:07)
[2022-11-07] MEDS: ATORVASTATIN CA 80 MG TABLET (FP) PO SCH (21:35)
[2022-11-07] MEDS ORDERED: DEXTROSE 50%-WATER 25 GM/50 ML DISP.SYRIN IVPUSH PRN (22:54)
[2022-11-08] MEDS: dilTIAZem HCL 30 MG TABLET NGT SCH ×4 (00:43→17:51)
[2022-11-08] MEDS: INSULIN SLIDING SCALE (NOVOLOG) 1 VIAL SQ SCH ×4 (06:36→21:50)
[2022-11-08] MEDS: AMINO ACIDS/PROTEIN HYDROLYS 30 ML LIQUID.PKT PO SCH ×2 (08:44→11:52)
[2022-11-08 10:10] LABS: HEMATOCRIT 30.3 % (32.4-45.2); HEMOGLOBIN 10.2 GM/dL (10.7-15.3); MCH 29.1 pg (25.7-33.7); MCHC 33.6 g/dl (32.0-36.0); MEAN CELL VOLUME 86.7 fl (80-96); MEAN PLT VOLUME 6.3 fl (7.5-11.1); PLATELET COUNT 249 10^3/uL (134-434); RDW 15.9 % (11.6-15.6); WHITE BLOOD COUNT 12.3 K/mm3 (4.0-10.0)
[2022-11-08 10:21] LABS: POTASSIUM 3.6 mmol/L (3.5-5.1)
[2022-11-08 10:23] LABS: CALCIUM 8.5 mg/dL (8.5-10.1)
[2022-11-08 10:24] LABS: ALBUMIN 2.4 g/dl (3.4-5.0)
[2022-11-08 10:27] LABS: CREATININE 4.5 mg/dL (0.55-1.3)
[2022-11-08 10:29] LABS: BILIRUBIN,TOTAL 0.5 mg/dL (0.2-1); TOT PROT 6.4 g/dl (6.4-8.2)
[2022-11-08] MEDS: FAMOTIDINE 10 MG TABLET PO SCH ×2 (10:30→11:52)
[2022-11-08] MEDS: ZINC OXIDE 20% TOPICAL OINTMENT 30 GM TUBE TP SCH ×2 (10:31→21:39)
[2022-11-08] MEDS ORDERED: INSULIN (NOVOLOG) ASPART 100 UNITS/ML 10ML VIAL ONE ×2 (16:22→21:42)
[2022-11-08] MEDS: SILVER SULFADIAZINE 1% TOP CREAM 50 GM JAR TP SCH ×2 (17:52→21:38)
[2022-11-08] MEDS: ATORVASTATIN CA 80 MG TABLET (FP) PO SCH (21:38)
[2022-11-09] MEDS: dilTIAZem HCL 30 MG TABLET NGT SCH ×5 (00:28→17:21)
[2022-11-09] MEDS ORDERED: ACETAMINOPHEN 160 MG/5 ML *Children Solution NGT ONE (04:24)
[2022-11-09] MEDS ORDERED: ACETAMINOPHEN 160 MG/5 ML *Children Solution PO ONE (04:24)
[2022-11-09] MEDS: ACETAMINOPHEN 500 MG TABLET (FP) NGT PRN (06:36)
[2022-11-09] MEDS: INSULIN SLIDING SCALE (NOVOLOG) 1 VIAL SQ SCH ×4 (06:36→23:08)
[2022-11-09] MEDS: AMINO ACIDS/PROTEIN HYDROLYS 30 ML LIQUID.PKT PO SCH (08:25)
[2022-11-09] MEDS: FAMOTIDINE 10 MG TABLET PO SCH (09:33)
[2022-11-09] MEDS: ZINC OXIDE 20% TOPICAL OINTMENT 30 GM TUBE TP SCH ×2 (09:34→22:58)
[2022-11-09] MEDS: SILVER SULFADIAZINE 1% TOP CREAM 50 GM JAR TP SCH ×2 (09:34→22:58)
[2022-11-09] MEDS ORDERED: MIDAZOLAM HCL 2 MG/2 ML SINGLE DOSE VIAL ONE (10:15)
[2022-11-09] MEDS ORDERED: FENTANYL CITRATE/PF 50 MCG/ML VIAL ONE (10:15)
[2022-11-09] MEDS ORDERED: ACETAMINOPHEN 160 MG/5 ML *Children Solution NGT PRN (10:30)
[2022-11-09] MEDS ORDERED: ACETAMINOPHEN 160 MG/5 ML *Children Solution PO PRN (10:30)
[2022-11-09 13:21] LABS: EPI CELLS >36 /uL (0-25.1); HYALINE CASTS 5 /uL (0-3.1); PH,URINE 5.5 (5.0-8.0); URINE APPEARANCE TURBID; URINE BACTERIA 1180 /uL (0-1359); URINE BILIRUBIN NEGATIVE (NEGATIVE); URINE COLOR DK YELLOW; URINE GLUCOSE (UA) NEGATIVE (NEGATIVE); URINE KETONE TRACE (NEGATIVE); URINE LEUK ESTERASE 3+ (NEGATIVE); URINE NITRITE NEGATIVE (NEGATIVE); URINE PROTEIN 3+ (NEGATIVE); URINE WBC 26645 /uL (0-25.8)
[2022-11-09] MEDS ORDERED: SODIUM CHLORIDE 250 ML IV PRN (13:33)
[2022-11-09 13:41] LABS: URINE CRYSTALS NEGATIVE /hpf; URINE RBC 80.8 /uL (0-23.9); YEAST NEGATIVE (NEGATIVE)
[2022-11-09] MEDS: ATORVASTATIN CA 80 MG TABLET (FP) PO SCH (22:58)
[2022-11-10] MEDS: INSULIN SLIDING SCALE (NOVOLOG) 1 VIAL SQ SCH ×3 (06:11→18:17)
[2022-11-10] MEDS: dilTIAZem HCL 30 MG TABLET NGT SCH ×4 (06:11→22:00)
[2022-11-10] MEDS ORDERED: EPOETIN ALFA-EPBX 4,000 UNIT/ML VIAL IVPUSH ONE (07:30)
[2022-11-10] MEDS: AMINO ACIDS/PROTEIN HYDROLYS 30 ML LIQUID.PKT PO SCH (09:01)
[2022-11-10] MEDS ORDERED: MIDAZOLAM HCL 2 MG/2 ML SINGLE DOSE VIAL ONE (10:24)
[2022-11-10] MEDS ORDERED: FENTANYL CITRATE/PF 50 MCG/ML VIAL ONE ×2 (10:24→10:56)
[2022-11-10] MEDS ORDERED: FENTANYL CITRATE/PF 50 MCG/ML VIAL IVPUSH ONE ×2 (10:44→10:58)
[2022-11-10] MEDS ORDERED: MIDAZOLAM HCL 2 MG/2 ML SINGLE DOSE VIAL IVPUSH ONE (10:44)
[2022-11-10] MEDS ORDERED: GLUCAGON 1 MG KIT IVPUSH ONE (10:48)
[2022-11-10] MEDS: SILVER SULFADIAZINE 1% TOP CREAM 50 GM JAR TP SCH ×2 (12:41→22:30)
[2022-11-10] MEDS: ZINC OXIDE 20% TOPICAL OINTMENT 30 GM TUBE TP SCH ×2 (12:42→22:20)
[2022-11-10] MEDS: FAMOTIDINE 10 MG TABLET PO SCH (12:49)
[2022-11-10 14:52] LABS: HEMATOCRIT 30.2 % (32.4-45.2); HEMOGLOBIN 9.9 GM/dL (10.7-15.3); MCH 28.6 pg (25.7-33.7); MCHC 32.7 g/dl (32.0-36.0); MEAN CELL VOLUME 87.3 fl (80-96); MEAN PLT VOLUME 6.4 fl (7.5-11.1); PLATELET COUNT 247 10^3/uL (134-434); RBC 3.46 M/mm3 (3.60-5.2); RDW 16.1 % (11.6-15.6)
[2022-11-10 15:11] LABS: POTASSIUM 3.6 mmol/L (3.5-5.1)
[2022-11-10 15:13] LABS: BLOOD UREA NITROGEN 33.5 mg/dL (7-18); CALCIUM 8.8 mg/dL (8.5-10.1)
[2022-11-10 15:17] LABS: CREATININE 2.3 mg/dL (0.55-1.3)
[2022-11-10] MEDS: ACETAMINOPHEN 500 MG TABLET (FP) NGT PRN (22:13)
[2022-11-10] MEDS: ATORVASTATIN CA 80 MG TABLET (FP) PO SCH (22:13)
[2022-11-11] MEDS: INSULIN SLIDING SCALE (NOVOLOG) 1 VIAL SQ SCH ×5 (06:48→17:42)
[2022-11-11] MEDS: dilTIAZem HCL 30 MG TABLET NGT SCH ×4 (07:01→21:00)
[2022-11-11] MEDS: FAMOTIDINE 10 MG TABLET PO SCH (09:55)
[2022-11-11] MEDS: AMINO ACIDS/PROTEIN HYDROLYS 30 ML LIQUID.PKT PO SCH (09:55)
[2022-11-11] MEDS: SILVER SULFADIAZINE 1% TOP CREAM 50 GM JAR TP SCH ×2 (09:57→21:53)
[2022-11-11] MEDS: ZINC OXIDE 20% TOPICAL OINTMENT 30 GM TUBE TP SCH ×2 (09:57→21:53)
[2022-11-11] MEDS: ATORVASTATIN CA 80 MG TABLET (FP) PO SCH (21:52)
[2022-11-12] MEDS: dilTIAZem HCL 30 MG TABLET NGT SCH ×3 (06:48→17:22)
[2022-11-12] MEDS: INSULIN SLIDING SCALE (NOVOLOG) 1 VIAL SQ SCH ×4 (06:49→22:10)
[2022-11-12] MEDS: AMINO ACIDS/PROTEIN HYDROLYS 30 ML LIQUID.PKT PO SCH (09:05)
[2022-11-12] MEDS: FAMOTIDINE 10 MG TABLET PO SCH (09:05)
[2022-11-12] MEDS: SILVER SULFADIAZINE 1% TOP CREAM 50 GM JAR TP SCH ×2 (09:05→22:23)
[2022-11-12] MEDS: ASPIRIN COATED 81 MG TABLET.EC PO SCH (09:05)
[2022-11-12] MEDS: ZINC OXIDE 20% TOPICAL OINTMENT 30 GM TUBE TP SCH ×2 (09:06→22:23)
[2022-11-12] MEDS ORDERED: ALBUTEROL SO4 0.083% IH SOL 2.5 MG/3 ML VIAL.NEB. NEB PRN (09:37)
[2022-11-12] MEDS ORDERED: FUROSEMIDE 40 MG/4 ML INJECTABLE VIAL IVPUSH ONE ×3 (09:37→16:12)
[2022-11-12 11:53] LABS: HEMATOCRIT 29.1 % (32.4-45.2); MCH 29.3 pg (25.7-33.7); MCHC 34.4 g/dl (32.0-36.0); MEAN CELL VOLUME 85.1 fl (80-96); MEAN PLT VOLUME 6.2 fl (7.5-11.1); PLATELET COUNT 233 10^3/uL (134-434); RBC 3.42 M/mm3 (3.60-5.2); RDW 15.7 % (11.6-15.6); WHITE BLOOD COUNT 10.7 K/mm3 (4.0-10.0)
[2022-11-12 12:11] LABS: POTASSIUM 4.3 mmol/L (3.5-5.1)
[2022-11-12 12:13] LABS: CALCIUM 8.3 mg/dL (8.5-10.1)
[2022-11-12 12:17] LABS: CREATININE 4.1 mg/dL (0.55-1.3)
[2022-11-12 12:21] LABS: N-TERMINAL BNP 2829.1 pg/ml (5-450)
[2022-11-12] MEDS: ATORVASTATIN CA 80 MG TABLET (FP) PO SCH (22:23)
[2022-11-13] MEDS: dilTIAZem HCL 30 MG TABLET NGT SCH ×3 (00:15→12:29)
[2022-11-13] MEDS ORDERED: FUROSEMIDE 40 MG/4 ML INJECTABLE VIAL IVPUSH SCH (06:00)
[2022-11-13] MEDS: INSULIN SLIDING SCALE (NOVOLOG) 1 VIAL SQ SCH ×2 (06:28→12:34)
[2022-11-13 07:58] LABS: POTASSIUM 4.2 mmol/L (3.5-5.1)
[2022-11-13 08:02] LABS: BLOOD UREA NITROGEN 60.6 mg/dL (7-18)
[2022-11-13 08:03] LABS: MAGNESIUM 2.3 mg/dL (1.8-2.4)
[2022-11-13 08:04] LABS: CALCIUM 8.5 mg/dL (8.5-10.1)
[2022-11-13 08:05] LABS: CREATININE 4.6 mg/dL (0.55-1.3)
[2022-11-13] MEDS ORDERED: SODIUM CHLORIDE 250 ML IV PRN (09:00)
[2022-11-13] MEDS ORDERED: APIXABAN 2.5 MG TABLET PEG SCH (10:00)
[2022-11-13 11:55] VITALS: BP 136/57
[2022-11-13] MEDS: FAMOTIDINE 10 MG TABLET PO SCH (12:29)
[2022-11-13] MEDS: AMINO ACIDS/PROTEIN HYDROLYS 30 ML LIQUID.PKT PO SCH (12:29)
[2022-11-13] MEDS: ASPIRIN COATED 81 MG TABLET.EC PO SCH (12:29)
[2022-11-13] MEDS: SILVER SULFADIAZINE 1% TOP CREAM 50 GM JAR TP SCH (12:30)
[2022-11-13] MEDS: ZINC OXIDE 20% TOPICAL OINTMENT 30 GM TUBE TP SCH (12:31)
[2022-11-13 14:21] VITALS: PULSE 110; RESP 20; TEMP 98.8
== END 2022-11-13 16:30 | DRG 64 ==
LOC: JER 16:54 → EDBD 16:54 → JERBED 22:26 → J5S 10-27 06:10 → J4W 10-27 21:02
PROVIDERS: ADMIT Internal Medicine; ATTEND Family Medicine
PROC: 5A1D70Z Performance of Urinary Filtration, Intermittent, Less than 6 Hours Per Day (ICD-10-PCS; 2022-10-27)
PROC: 5A1D70Z Performance of Urinary Filtration, Intermittent, Less than 6 Hours Per Day (ICD-10-PCS; 2022-10-30)
PROC: 5A1D70Z Performance of Urinary Filtration, Intermittent, Less than 6 Hours Per Day (ICD-10-PCS; 2022-11-01)
PROC: 5A1D70Z Performance of Urinary Filtration, Intermittent, Less than 6 Hours Per Day (ICD-10-PCS; 2022-11-03)
PROC: 5A1D70Z Performance of Urinary Filtration, Intermittent, Less than 6 Hours Per Day (ICD-10-PCS; 2022-11-06)
PROC: 5A1D70Z Performance of Urinary Filtration, Intermittent, Less than 6 Hours Per Day (ICD-10-PCS; 2022-11-08)
PROC: 0DH63UZ Insertion of Feeding Device into Stomach, Percutaneous Approach (ICD-10-PCS; principal; 2022-11-10)
PROC: BD12ZZZ Fluoroscopy of Stomach (ICD-10-PCS; 2022-11-10)
PROC: 5A1D70Z Performance of Urinary Filtration, Intermittent, Less than 6 Hours Per Day (ICD-10-PCS; 2022-11-10)
PROC: 5A1D70Z Performance of Urinary Filtration, Intermittent, Less than 6 Hours Per Day (ICD-10-PCS; 2022-11-13)
DX: I63.89 Other cerebral infarction (principal); G93.41 Metabolic encephalopathy; N18.6 End stage renal disease; I12.0 Hypertensive chronic kidney disease with stage 5 chronic kidney disease or end stage renal disease; N17.9 Acute kidney failure, unspecified; I69.354 Hemiplegia and hemiparesis following cerebral infarction affecting left non-dominant side; N39.0 Urinary tract infection, site not specified; I31.39 Other pericardial effusion (noninflammatory); R47.01 Aphasia; I10 Essential (primary) hypertension; E78.5 Hyperlipidemia, unspecified; I48.0 Paroxysmal atrial fibrillation; E11.9 Type 2 diabetes mellitus without complications; Z99.2 Dependence on renal dialysis; E11.22 Type 2 diabetes mellitus with diabetic chronic kidney disease; R41.82 Altered mental status, unspecified; D64.9 Anemia, unspecified; G93.89 Other specified disorders of brain; E83.39 Other disorders of phosphorus metabolism; E83.41 Hypermagnesemia; R93.1 Abnormal findings on diagnostic imaging of heart and coronary circulation; B95.2 Enterococcus as the cause of diseases classified elsewhere; B96.5 Pseudomonas (aeruginosa) (mallei) (pseudomallei) as the cause of diseases classified elsewhere; F41.9 Anxiety disorder, unspecified; R50.9 Fever, unspecified; R62.7 Adult failure to thrive; Z68.20 Body mass index [BMI] 20.0-20.9, adult; D72.829 Elevated white blood cell count, unspecified
CPT/HCPCS: 36415; 36430; 49440; 70450-TC; 70551-TC; 71045-TC-FY; 74018-TC-FY; 80048; 80053; 81003; 82024; 82533; 82728; 82962; 83036; 83540; 83550; 83735; 83880; 84100; 84439; 84443; 84466; 84484; 85025; 85027; 85045; 85610; 86803; 86850; 86900; 86901; 86922; 87040; 87086; 87186; 87340; 87635; 93005; 93010; 93306-TC; 93880-TC; 97163-GP; 99285-25; P9058; Q5106

== ENCOUNTER 2022-11-16 11:41 | Inpatient (IN) | payer OTHER ==
[2022-11-16 13:55] LABS: VENOUS BASE EXCESS 1.4 mmol/L (-2-2); VENOUS O2 SATURATION 55.5 % (70-80); VENOUS PCO2 45.2 mmHg (38-52); VENOUS PH 7.387 (7.310-7.410)
[2022-11-16 14:01] LABS: HEMATOCRIT 18.8 % (32.4-45.2); MCHC 30.9 g/dl (32.0-36.0); MEAN CELL VOLUME 87.4 fl (80-96); PLATELET COUNT 417 10^3/uL (134-434); RBC 2.15 M/mm3 (3.60-5.2); RDW 16.4 % (11.6-15.6); WHITE BLOOD COUNT 22.8 K/mm3 (4.0-10.0)
[2022-11-16 14:03] LABS: HEMOGLOBIN 5.8 GM/dL (10.7-15.3)
[2022-11-16 14:08] LABS: INR 1.37 (0.83-1.09); PROTHROMBIN TIME (PATIENT) 15.8 SEC (9.7-13.0)
[2022-11-16 14:11] LABS: ACTIVATED PTT 28.5 SECONDS (25.2-36.5)
[2022-11-16 14:17] LABS: CHLORIDE 94 mmol/L (98-107); POTASSIUM 5.3 mmol/L (3.5-5.1); SODIUM 133 mmol/L (136-145)
[2022-11-16] MEDS ORDERED: PANTOPRAZOLE SODIUM 40 MG in SODIUM CHLORIDE 100 ML IVPB ONE (14:18)
[2022-11-16 14:20] LABS: ALBUMIN 2.4 g/dl (3.4-5.0); ANION GAP 11 MMOL/L (8-16); CALCIUM 8.7 mg/dL (8.5-10.1); CO2 28 mmol/L (21-32); GLUCOSE,RANDOM 224 mg/dL (74-106)
[2022-11-16 14:23] LABS: CREATININE 5.4 mg/dL (0.55-1.3); SGOT/AST 30 U/L (15-37); SGPT/ALT 23 U/L (13-61)
[2022-11-16 14:25] LABS: TOT PROT 5.8 g/dl (6.4-8.2)
[2022-11-16 14:37] LABS: ANISOCYTOSIS 0; HELMET CELLS 0; HOWELL-JOLLY BODIES 0; MACROCYTOSIS 0; OVALOCYTE 0; ROULEAU 0; SICKELED CELLS 0; TARGET CELLS 0; TEAR DROP CELLS 0; TOXIC GRANULATION 0
[2022-11-16] MEDS ORDERED: PANTOPRAZOLE SODIUM 40 MG/100 ML BAG IVPB ONE (14:37)
[2022-11-16 14:54] LABS: ALK PHOS 76 U/L (45-117); BILIRUBIN,TOTAL 0.3 mg/dL (0.2-1); BLOOD UREA NITROGEN 148.3 mg/dL (7-18)
[2022-11-16 15:28] LABS: URINE APPEARANCE TURBID; URINE BILIRUBIN NEGATIVE (NEGATIVE); URINE COLOR DK YELLOW; URINE GLUCOSE (UA) NEGATIVE (NEGATIVE); URINE KETONE NEGATIVE (NEGATIVE)
[2022-11-16 15:29] LABS: URINE LEUK ESTERASE 4+ (NEGATIVE); URINE NITRITE NEGATIVE (NEGATIVE); URINE PROTEIN 2 (NEGATIVE); URINE RBC 44 /uL (0-23.9); URINE UROBILINOGEN 1 mg/dL (0.2-1.0); URINE WBC 10569 /uL (0-25.8)
[2022-11-16 15:30] LABS: EPI CELLS 148 /uL (0-25.1); HYALINE CASTS 713 /uL (0-3.1); URINE BACTERIA 13284 /uL (0-1359)
[2022-11-16] MEDS ORDERED: MEROPENEM 500 MG in DEXTROSE 5%-WATER 100 ML IVPB ONE (16:34)
[2022-11-16] MEDS ORDERED: PANTOPRAZOLE SODIUM 40 MG VIAL ONE (18:35)
[2022-11-16] MEDS ORDERED: MEROPENEM 500 MG VIAL (RESTRICTED TO ID) IVPB ONE (18:35)
[2022-11-16] MEDS: PANTOPRAZOLE SODIUM 80 MG in SODIUM CHLORIDE 100 ML IVPB SCH (19:51)
[2022-11-17] MEDS: PANTOPRAZOLE SODIUM 80 MG in SODIUM CHLORIDE 100 ML IVPB SCH ×2 (02:42→13:37)
[2022-11-17 03:28] VITALS: BMI 23.1
[2022-11-17] MEDS ORDERED: MEROPENEM 500 MG in DEXTROSE 5%-WATER 100 ML IVPB SCH (06:30)
[2022-11-17 07:57] LABS: HEMATOCRIT 21.8 % (32.4-45.2); HEMOGLOBIN 7.5 GM/dL (10.7-15.3); MCH 29.5 pg (25.7-33.7); MCHC 34.4 g/dl (32.0-36.0); MEAN CELL VOLUME 85.7 fl (80-96); MEAN PLT VOLUME 6.5 fl (7.5-11.1); PLATELET COUNT 292 10^3/uL (134-434); RBC 2.54 M/mm3 (3.60-5.2); RDW 14.8 % (11.6-15.6); WHITE BLOOD COUNT 14.8 K/mm3 (4.0-10.0)
[2022-11-17 08:14] LABS: CHLORIDE 97 mmol/L (98-107); POTASSIUM 5.2 mmol/L (3.5-5.1); SODIUM 135 mmol/L (136-145)
[2022-11-17 08:16] LABS: CALCIUM 8.3 mg/dL (8.5-10.1)
[2022-11-17 08:17] LABS: ANION GAP 12 MMOL/L (8-16); CO2 26 mmol/L (21-32); GLUCOSE,RANDOM 150 mg/dL (74-106); MAGNESIUM 2.4 mg/dL (1.8-2.4)
[2022-11-17 08:20] LABS: CREATININE 5.8 mg/dL (0.55-1.3)
[2022-11-17 08:23] LABS: BLOOD UREA NITROGEN 170.3 mg/dL (7-18)
[2022-11-17] MEDS ORDERED: HUM PROTHROMBIN CPLX(PCC)4FACT 1,000 UNIT/40 ML VIAL IVPB ONE (10:24)
[2022-11-17] MEDS ORDERED: PHYTONADIONE 10 MG/1 ML AMP IVPB ONE (10:25)
[2022-11-17] MEDS ORDERED: ERYTHROMYCIN *INJECTION* 500 MG VIAL IVPB ONE (11:00)
[2022-11-17] MEDS ORDERED: ERYTHROMYCIN INJECTION - 250 MG in SODIUM CHLORIDE 100 ML IVPB ONE (11:30)
[2022-11-17] MEDS: [UNRECOGNIZED DRUG - OTHER] IVPB SCH (12:28)
[2022-11-17] MEDS: HUM PROTHROMBIN CPLX IVPB SCH (12:28)
[2022-11-17] MEDS ORDERED: VANCOMYCIN/WATER FOR INJ (PEG) 1,000 MG/200 ML BAG IVPB ONE ×2 (13:45→20:15)
[2022-11-17] MEDS ORDERED: SODIUM CHLORIDE 250 ML IV PRN (14:07)
[2022-11-17] MEDS ORDERED: TETRACAINE/BENZOCAINE/BUTAMBEN 20 GM SPR TP ONE (14:19)
[2022-11-17] MEDS ORDERED: EPOETIN ALFA-EPBX 10,000 UNIT/ML VIAL SQ ONE (15:00)
[2022-11-17 15:58] LABS: HEMATOCRIT 25.4 % (32.4-45.2); HEMOGLOBIN 8.7 GM/dL (10.7-15.3); MCH 28.8 pg (25.7-33.7); MCHC 34.3 g/dl (32.0-36.0); MEAN PLT VOLUME 6.1 fl (7.5-11.1); PLATELET COUNT 299 10^3/uL (134-434); RBC 3.02 M/mm3 (3.60-5.2); RDW 14.5 % (11.6-15.6); WHITE BLOOD COUNT 16.6 K/mm3 (4.0-10.0)
[2022-11-17 16:10] LABS: INR 1.17 (0.83-1.09); PROTHROMBIN TIME (PATIENT) 13.5 SEC (9.7-13.0)
[2022-11-17 16:24] LABS: CHLORIDE 95 mmol/L (98-107); POTASSIUM 5.4 mmol/L (3.5-5.1); SODIUM 132 mmol/L (136-145)
[2022-11-17 16:25] LABS: ANION GAP 13 MMOL/L (8-16); CALCIUM 8.2 mg/dL (8.5-10.1); CO2 24 mmol/L (21-32)
[2022-11-17 16:29] LABS: CREATININE 5.8 mg/dL (0.55-1.3)
[2022-11-17 16:30] LABS: BLOOD UREA NITROGEN 165.3 mg/dL (7-18); GLUCOSE,RANDOM 123 mg/dL (74-106)
[2022-11-17] MEDS: PIPERACILLIN/TAZOB 2.25 GM 2.25 GM in DEXTROSE 5%-WATER - 50 ML IVPB SCH (20:41)
[2022-11-18] MEDS: PIPERACILLIN/TAZOB 2.25 GM 2.25 GM in DEXTROSE 5%-WATER - 50 ML IVPB SCH ×3 (01:42→19:09)
[2022-11-18 07:27] LABS: BASO % 0.3 % (0-2.0); EOS % 0.7 % (0-4.5); HEMATOCRIT 21.4 % (32.4-45.2); HEMOGLOBIN 7.4 GM/dL (10.7-15.3); MCH 29.5 pg (25.7-33.7); MCHC 34.5 g/dl (32.0-36.0); MEAN CELL VOLUME 85.6 fl (80-96); MEAN PLT VOLUME 7.5 fl (7.5-11.1); MONO % 5.5 % (3.8-10.2); NEUT % 83.5 % (42.8-82.8); PLATELET COUNT 226 10^3/uL (134-434); RDW 14.7 % (11.6-15.6); WHITE BLOOD COUNT 11.4 K/mm3 (4.0-10.0)
[2022-11-18 07:54] LABS: POTASSIUM 4.5 mmol/L (3.5-5.1)
[2022-11-18 07:58] LABS: CALCIUM 8.3 mg/dL (8.5-10.1)
[2022-11-18 08:05] LABS: ALBUMIN 2.4 g/dl (3.4-5.0)
[2022-11-18 08:09] LABS: CREATININE 3.1 mg/dL (0.55-1.3)
[2022-11-18 08:10] LABS: TOT PROT 5.3 g/dl (6.4-8.2)
[2022-11-18 08:11] LABS: BILIRUBIN,TOTAL 0.6 mg/dL (0.2-1)
[2022-11-18] MEDS: MEROPENEM 500 MG in DEXTROSE 5%-WATER 100 ML IVPB SCH ×2 (09:50→09:51)
[2022-11-18] MEDS: PANTOPRAZOLE SODIUM 40 MG VIAL IVPUSH SCH (09:50)
[2022-11-18] MEDS ORDERED: ACETAMINOPHEN 500 MG TABLET (FP) PEG PRN (11:49)
[2022-11-18] MEDS ORDERED: ALBUTEROL SO4 0.083% IH SOL 2.5 MG/3 ML VIAL.NEB. NEB PRN (11:49)
[2022-11-18] MEDS: [UNRECOGNIZED DRUG - OTHER] IVPB SCH (13:53)
[2022-11-18] MEDS: HUM PROTHROMBIN CPLX IVPB SCH (13:53)
[2022-11-18] MEDS: dilTIAZem HCL 30 MG TABLET PEG SCH ×2 (14:59→18:13)
[2022-11-18] MEDS: ATORVASTATIN CA 80 MG TABLET (FP) PEG SCH (21:32)
[2022-11-19] MEDS: dilTIAZem HCL 30 MG TABLET PEG SCH ×4 (00:57→17:03)
[2022-11-19] MEDS: PIPERACILLIN/TAZOB 2.25 GM 2.25 GM in DEXTROSE 5%-WATER - 50 ML IVPB SCH ×2 (01:08→10:23)
[2022-11-19 09:02] LABS: HEMOGLOBIN 8.9 GM/dL (10.7-15.3); MCH 29.9 pg (25.7-33.7); MCHC 34.3 g/dl (32.0-36.0); MEAN CELL VOLUME 87.1 fl (80-96); MEAN PLT VOLUME 6.7 fl (7.5-11.1); PLATELET COUNT 268 10^3/uL (134-434); RBC 2.98 M/mm3 (3.60-5.2); RDW 14.5 % (11.6-15.6); WHITE BLOOD COUNT 11.2 K/mm3 (4.0-10.0)
[2022-11-19 09:04] LABS: POTASSIUM 4.2 mmol/L (3.5-5.1)
[2022-11-19 09:13] LABS: CREATININE 4.2 mg/dL (0.55-1.3)
[2022-11-19 09:15] LABS: ALBUMIN 2.2 g/dl (3.4-5.0)
[2022-11-19 09:16] LABS: BILIRUBIN,TOTAL 0.6 mg/dL (0.2-1)
[2022-11-19 09:18] LABS: CALCIUM 8.1 mg/dL (8.5-10.1)
[2022-11-19 10:15] LABS: ANISOCYTOSIS 0; HELMET CELLS 0; HOWELL-JOLLY BODIES 0; MACROCYTOSIS 0; OVALOCYTE 0; ROULEAU 0; SICKELED CELLS 0; TARGET CELLS 0; TEAR DROP CELLS 0; TOXIC GRANULATION 0
[2022-11-19] MEDS: MIDODRINE HCL 5 MG TABLET GT SCH (10:22)
[2022-11-19] MEDS: PANTOPRAZOLE SODIUM 40 MG VIAL IVPUSH SCH (10:23)
[2022-11-19] MEDS: ATORVASTATIN CA 80 MG TABLET (FP) PEG SCH (22:02)
[2022-11-20] MEDS: dilTIAZem HCL 30 MG TABLET PEG SCH ×4 (00:16→18:49)
[2022-11-20] MEDS ORDERED: VANCOMYCIN/WATER FOR INJ (PEG) 1,000 MG/200 ML BAG IVPB ONE (10:00)
[2022-11-20] MEDS ORDERED: SODIUM CHLORIDE 250 ML IV PRN (10:31)
[2022-11-20] MEDS: MIDODRINE HCL 5 MG TABLET GT SCH (10:40)
[2022-11-20] MEDS: PANTOPRAZOLE SODIUM 40 MG VIAL IVPUSH SCH (10:41)
[2022-11-20] MEDS ORDERED: ERYTHROMYCIN *INJECTION* 500 MG VIAL IVPB ONE (11:03)
[2022-11-20 11:50] LABS: BASO % 0.4 % (0-2.0); EOS % 1.4 % (0-4.5); HEMATOCRIT 28.3 % (32.4-45.2); HEMOGLOBIN 9.5 GM/dL (10.7-15.3); LYMPH % 10.3 % (8-40); MCH 29.4 pg (25.7-33.7); MCHC 33.7 g/dl (32.0-36.0); MEAN CELL VOLUME 87.2 fl (80-96); MEAN PLT VOLUME 6.5 fl (7.5-11.1); MONO % 4.4 % (3.8-10.2); NEUT % 83.5 % (42.8-82.8); PLATELET COUNT 277 10^3/uL (134-434); RBC 3.25 M/mm3 (3.60-5.2); RDW 15.1 % (11.6-15.6); WHITE BLOOD COUNT 11.4 K/mm3 (4.0-10.0)
[2022-11-20] MEDS ORDERED: ERYTHROMYCIN INJECTION - 250 MG in SODIUM CHLORIDE 100 ML IVPB ONE (12:30)
[2022-11-20] MEDS ORDERED: VITAMIN B COMP W-C 1 EA TABLET (NEPHRO-VITE) PO SCH (12:45)
[2022-11-20] MEDS ORDERED: EPOETIN ALFA-EPBX 10,000 UNIT/ML VIAL SQ ONE (17:00)
[2022-11-20] MEDS ORDERED: AMINO ACIDS/PROTEIN HYDROLYS 30 ML LIQUID.PKT PO SCH (17:30)
[2022-11-20 20:17] VITALS: BP 144/52; PULSE 78; RESP 18; TEMP 98.9
== END 2022-11-20 21:57 | DRG 377 ==
LOC: JER 11:41 → JERBED 18:47 → J7W 22:41 → J4S 11-17 18:56
PROVIDERS: ADMIT Internal Medicine; ATTEND Family Medicine
PROC: 30233N1 Transfusion of Nonautologous Red Blood Cells into Peripheral Vein, Percutaneous Approach (ICD-10-PCS; 2022-11-16)
PROC: 5A1D70Z Performance of Urinary Filtration, Intermittent, Less than 6 Hours Per Day (ICD-10-PCS; 2022-11-17)
PROC: 0DJ08ZZ Inspection of Upper Intestinal Tract, Via Natural or Artificial Opening Endoscopic (ICD-10-PCS; principal; 2022-11-17 14:00)
DX: K92.2 Gastrointestinal hemorrhage, unspecified (principal); G93.41 Metabolic encephalopathy; N18.6 End stage renal disease; I69.354 Hemiplegia and hemiparesis following cerebral infarction affecting left non-dominant side; N39.0 Urinary tract infection, site not specified; I12.0 Hypertensive chronic kidney disease with stage 5 chronic kidney disease or end stage renal disease; I48.0 Paroxysmal atrial fibrillation; D64.9 Anemia, unspecified; Z99.2 Dependence on renal dialysis; Z79.01 Long term (current) use of anticoagulants; I95.89 Other hypotension; I69.391 Dysphagia following cerebral infarction; R13.10 Dysphagia, unspecified; F41.9 Anxiety disorder, unspecified; K29.60 Other gastritis without bleeding; Z93.1 Gastrostomy status
CPT/HCPCS: 0241U-QW; 36415; 36430; 71045-TC-FY; 80048; 80053; 81003; 82272; 82550; 82553; 82803; 83605; 83735; 84484; 85025; 85027; 85610; 85730; 86803; 86850; 86900; 86901; 86922; 87040; 87086; 87186; 87340; 93005; 93010; 99285-25; J7168; P9058; Q5106

== ENCOUNTER 2022-12-12 05:38 | Inpatient (IN) | payer OTHER ==
[2022-12-12] MEDS ORDERED: dilTIAZem HCL 50 MG/10 ML - 10 ML VIAL IVPUSH ONE ×2 (06:40→07:45)
[2022-12-12 06:42] LABS: VENOUS BASE EXCESS 2.7 mmol/L (-2-2); VENOUS O2 SATURATION 85.4 % (70-80); VENOUS PCO2 42.5 mmHg (38-52); VENOUS PH 7.427 (7.310-7.410)
[2022-12-12 06:45] LABS: BASO % 0.2 % (0-2.0); EOS % 0.4 % (0-4.5); HEMATOCRIT 27.1 % (32.4-45.2); LYMPH % 5.4 % (8-40); MCH 28.8 pg (25.7-33.7); MCHC 33.4 g/dl (32.0-36.0); MEAN CELL VOLUME 86.3 fl (80-96); MEAN PLT VOLUME 6.8 fl (7.5-11.1); MONO % 4.8 % (3.8-10.2); NEUT % 89.2 % (42.8-82.8); PLATELET COUNT 311 10^3/uL (134-434); RBC 3.14 M/mm3 (3.60-5.2); RDW 15.4 % (11.6-15.6); WHITE BLOOD COUNT 17.6 K/mm3 (4.0-10.0)
[2022-12-12] MEDS ORDERED: dilTIAZem HCL 125 MG/25 ML - 25 ML VIAL ONE ×2 (06:50→07:54)
[2022-12-12 07:18] LABS: CHLORIDE 89 mmol/L (98-107); POTASSIUM 4.6 mmol/L (3.5-5.1); SODIUM 132 mmol/L (136-145)
[2022-12-12 07:21] LABS: ANION GAP 16 MMOL/L (8-16); CALCIUM 8.8 mg/dL (8.5-10.1); CO2 27 mmol/L (21-32); MAGNESIUM 3.3 mg/dL (1.8-2.4)
[2022-12-12 07:24] LABS: CREATININE 6.3 mg/dL (0.55-1.3); PHOSPHOROUS 2.4 mg/dL (2.5-4.9); SGOT/AST 52 U/L (15-37); SGPT/ALT 43 U/L (13-61)
[2022-12-12 07:25] LABS: TOT PROT 6.7 g/dl (6.4-8.2)
[2022-12-12 07:26] LABS: BILIRUBIN,TOTAL 0.3 mg/dL (0.2-1)
[2022-12-12 07:27] LABS: ALK PHOS 148 U/L (45-117)
[2022-12-12] MEDS ORDERED: dilTIAZem HCL 30 MG TABLET GT ONE (07:45)
[2022-12-12 07:51] LABS: BLOOD UREA NITROGEN 167.9 mg/dL (7-18); GLUCOSE,RANDOM 444 mg/dL (74-106)
[2022-12-12] MEDS ORDERED: dilTIAZem HCL 30 MG TABLET ONE (07:54)
[2022-12-12] MEDS ORDERED: VANCOMYCIN/WATER 1250 MG 1,250 MG/250 ML BAG IVPB ONE ×2 (09:24→09:49)
[2022-12-12] MEDS ORDERED: SODIUM CHLORIDE 0.9% 500 ML INFUS.BAG IV ONE ×2 (09:24→12:47)
[2022-12-12] MEDS ORDERED: PIPERACILLIN/TAZOB 3.375 GM 3.375 GM in DEXTROSE 5%-WATER - 50 ML IVPB ONE (09:25)
[2022-12-12] MEDS ORDERED: PIPERACILLIN/TAZOB 3.375 GM 3.375 GM/50 ML BAG IVPB ONE (09:49)
[2022-12-12] MEDS ORDERED: INSULIN REGULAR HUMAN 100 UNITS/ML *VIAL IVPUSH ONE (12:12)
[2022-12-12] MEDS ORDERED: INSULIN REGULAR HUMAN 100 UNITS/ML *VIAL ONE (12:53)
[2022-12-12 13:11] LABS: CHLORIDE 90 mmol/L (98-107); POTASSIUM 4.8 mmol/L (3.5-5.1); SODIUM 133 mmol/L (136-145)
[2022-12-12 13:14] LABS: ALBUMIN 1.8 g/dl (3.4-5.0); ANION GAP 15 MMOL/L (8-16); CALCIUM 8.3 mg/dL (8.5-10.1); CO2 27 mmol/L (21-32)
[2022-12-12 13:17] LABS: CREATININE 6.4 mg/dL (0.55-1.3); SGPT/ALT 41 U/L (13-61)
[2022-12-12 13:18] LABS: SGOT/AST 41 U/L (15-37)
[2022-12-12 13:19] LABS: BILIRUBIN,TOTAL 0.5 mg/dL (0.2-1); TOT PROT 6.1 g/dl (6.4-8.2)
[2022-12-12 13:20] LABS: ALK PHOS 132 U/L (45-117)
[2022-12-12 13:32] LABS: BLOOD UREA NITROGEN 170.8 mg/dL (7-18); GLUCOSE,RANDOM 475 mg/dL (74-106)
[2022-12-12] MEDS ORDERED: INSULIN (LEVEMIR) 100 UNITS/ML UNITS SQ ONE ×3 (14:48→15:24)
[2022-12-12] MEDS ORDERED: SODIUM CHLORIDE 250 ML IV PRN (15:00)
[2022-12-12] MEDS: INSULIN SLIDING SCALE (NOVOLOG) 1 VIAL SQ SCH (17:02)
[2022-12-12] MEDS ORDERED: INSULIN (NOVOLOG) ASPART 100 UNITS/ML 10ML VIAL ONE (17:04)
[2022-12-12 17:20] LABS: CHLORIDE 92 mmol/L (98-107); SODIUM 134 mmol/L (136-145)
[2022-12-12 17:22] LABS: CALCIUM 8.5 mg/dL (8.5-10.1)
[2022-12-12 17:23] LABS: ALBUMIN 1.8 g/dl (3.4-5.0); ANION GAP 15 MMOL/L (8-16); CO2 28 mmol/L (21-32)
[2022-12-12 17:25] LABS: CREATININE 6.5 mg/dL (0.55-1.3); SGPT/ALT 38 U/L (13-61)
[2022-12-12 17:26] LABS: SGOT/AST 42 U/L (15-37)
[2022-12-12 17:27] LABS: BILIRUBIN,TOTAL 0.3 mg/dL (0.2-1)
[2022-12-12 17:28] LABS: ALK PHOS 122 U/L (45-117); BLOOD UREA NITROGEN 141.6 mg/dL (7-18); GLUCOSE,RANDOM 429 mg/dL (74-106)
[2022-12-12] MEDS ORDERED: EPOETIN ALFA-EPBX 10,000 UNIT/ML VIAL SQ ONE (21:00)
[2022-12-12 21:14] VITALS: BMI 23.1
[2022-12-12] MEDS ORDERED: ACETAMINOPHEN 500 MG TABLET (FP) NGT PRN (21:35)
[2022-12-12] MEDS ORDERED: ALBUTEROL SO4 0.083% IH SOL 2.5 MG/3 ML VIAL.NEB. NEB PRN (21:35)
[2022-12-12] MEDS ORDERED: ATORVASTATIN CA 80 MG TABLET (FP) PO SCH (22:00)
[2022-12-13] MEDS: ATORVASTATIN CA 80 MG TABLET (FP) GT SCH ×2 (00:31→23:44)
[2022-12-13] MEDS: dilTIAZem HCL 30 MG TABLET NGT SCH ×5 (00:31→23:44)
[2022-12-13] MEDS: OCULAR LUBRICANT OPHTHALMIC OINTMENT 7 GM TUBE OU SCH ×2 (00:37→23:45)
[2022-12-13] MEDS: INSULIN SLIDING SCALE (NOVOLOG) 1 VIAL SQ SCH ×5 (00:46→23:38)
[2022-12-13] MEDS: INSULIN (LEVEMIR) 100 UNITS/ML UNITS SQ SCH ×3 (00:46→23:52)
[2022-12-13 08:30] LABS: HEMOGLOBIN 7.5 GM/dL (10.7-15.3); MCH 28.1 pg (25.7-33.7); MCHC 32.7 g/dl (32.0-36.0); MEAN CELL VOLUME 85.7 fl (80-96); MEAN PLT VOLUME 6.6 fl (7.5-11.1); PLATELET COUNT 269 10^3/uL (134-434); RBC 2.69 M/mm3 (3.60-5.2); RDW 15.1 % (11.6-15.6); WHITE BLOOD COUNT 16.5 K/mm3 (4.0-10.0)
[2022-12-13 08:47] LABS: POTASSIUM 3.8 mmol/L (3.5-5.1)
[2022-12-13 08:50] LABS: CALCIUM 7.8 mg/dL (8.5-10.1)
[2022-12-13 08:51] LABS: ALBUMIN 1.7 g/dl (3.4-5.0); MAGNESIUM 2.4 mg/dL (1.8-2.4)
[2022-12-13 08:54] LABS: CREATININE 3.5 mg/dL (0.55-1.3)
[2022-12-13 08:55] LABS: BILIRUBIN,TOTAL 0.4 mg/dL (0.2-1)
[2022-12-13 08:56] LABS: TOT PROT 5.7 g/dl (6.4-8.2)
[2022-12-13 08:57] LABS: BLOOD UREA NITROGEN 78.1 mg/dL (7-18)
[2022-12-13 09:19] LABS: ANISOCYTOSIS 1+; MACROCYTOSIS 0
[2022-12-13] MEDS ORDERED: PANTOPRAZOLE SOD 40 MG SUSPENSION PACKET PO SCH (10:00)
[2022-12-13] MEDS ORDERED: FAMOTIDINE 20 MG/2.5 ML ORAL LIQUID GT SCH (10:00)
[2022-12-13] MEDS: PIPERACILLIN/TAZOB 2.25 GM 2.25 GM in DEXTROSE 5%-WATER - 50 ML IVPB SCH ×2 (11:52→17:36)
[2022-12-14] MEDS: PIPERACILLIN/TAZOB 2.25 GM 2.25 GM in DEXTROSE 5%-WATER - 50 ML IVPB SCH ×3 (01:11→17:04)
[2022-12-14 07:55] LABS: POTASSIUM 4.4 mmol/L (3.5-5.1)
[2022-12-14] MEDS: dilTIAZem HCL 30 MG TABLET NGT SCH ×4 (07:55→23:26)
[2022-12-14] MEDS: INSULIN (LEVEMIR) 100 UNITS/ML UNITS SQ SCH (07:55)
[2022-12-14] MEDS: INSULIN SLIDING SCALE (NOVOLOG) 1 VIAL SQ SCH ×4 (07:56→21:44)
[2022-12-14] MEDS ORDERED: INSULIN (NOVOLOG) ASPART 100 UNITS/ML 10ML VIAL ONE ×3 (08:01→21:43)
[2022-12-14 08:02] LABS: CALCIUM 7.8 mg/dL (8.5-10.1)
[2022-12-14 08:03] LABS: ALBUMIN 1.6 g/dl (3.4-5.0); BLOOD UREA NITROGEN 98.5 mg/dL (7-18)
[2022-12-14 08:06] LABS: BASO % 0.2 % (0-2.0); CREATININE 4.4 mg/dL (0.55-1.3); EOS % 0.9 % (0-4.5); HEMOGLOBIN 7.6 GM/dL (10.7-15.3); LYMPH % 9.2 % (8-40); MCH 28.4 pg (25.7-33.7); MEAN CELL VOLUME 86.1 fl (80-96); MEAN PLT VOLUME 6.4 fl (7.5-11.1); MONO % 4.9 % (3.8-10.2); NEUT % 84.8 % (42.8-82.8); PLATELET COUNT 252 10^3/uL (134-434); RBC 2.67 M/mm3 (3.60-5.2); RDW 15.6 % (11.6-15.6); WHITE BLOOD COUNT 14.5 K/mm3 (4.0-10.0)
[2022-12-14 08:08] LABS: BILIRUBIN,TOTAL 0.4 mg/dL (0.2-1); TOT PROT 5.5 g/dl (6.4-8.2)
[2022-12-14] MEDS: PANTOPRAZOLE SODIUM 40 MG VIAL IVPUSH SCH (10:47)
[2022-12-14] MEDS ORDERED: SODIUM CHLORIDE 250 ML IV PRN (13:11)
[2022-12-14] MEDS ORDERED: EPOETIN ALFA-EPBX 10,000 UNIT/ML VIAL IVPUSH ONE (14:00)
[2022-12-14] MEDS: OCULAR LUBRICANT OPHTHALMIC OINTMENT 7 GM TUBE OU SCH (21:45)
[2022-12-14] MEDS: ATORVASTATIN CA 80 MG TABLET (FP) GT SCH (23:02)
[2022-12-15] MEDS: PIPERACILLIN/TAZOB 2.25 GM 2.25 GM in DEXTROSE 5%-WATER - 50 ML IVPB SCH ×3 (01:02→17:05)
[2022-12-15] MEDS: dilTIAZem HCL 30 MG TABLET NGT SCH ×3 (06:06→17:11)
[2022-12-15] MEDS: INSULIN (LEVEMIR) 100 UNITS/ML UNITS SQ SCH (06:07)
[2022-12-15] MEDS: INSULIN SLIDING SCALE (NOVOLOG) 1 VIAL SQ SCH ×4 (06:07→23:00)
[2022-12-15 07:39] LABS: BASO % 0.1 % (0-2.0); EOS % 0.5 % (0-4.5); HEMATOCRIT 25.7 % (32.4-45.2); HEMOGLOBIN 8.5 GM/dL (10.7-15.3); LYMPH % 10.4 % (8-40); MCH 28.5 pg (25.7-33.7); MCHC 33.1 g/dl (32.0-36.0); MEAN CELL VOLUME 85.8 fl (80-96); MEAN PLT VOLUME 6.1 fl (7.5-11.1); MONO % 5.3 % (3.8-10.2); NEUT % 83.7 % (42.8-82.8); PLATELET COUNT 284 10^3/uL (134-434); RDW 15.1 % (11.6-15.6); WHITE BLOOD COUNT 15.1 K/mm3 (4.0-10.0)
[2022-12-15 08:01] LABS: POTASSIUM 3.8 mmol/L (3.5-5.1)
[2022-12-15 08:33] LABS: ALBUMIN 1.7 g/dl (3.4-5.0); CALCIUM 7.9 mg/dL (8.5-10.1)
[2022-12-15 08:37] LABS: CREATININE 2.9 mg/dL (0.55-1.3)
[2022-12-15 08:38] LABS: BILIRUBIN,TOTAL 0.8 mg/dL (0.2-1); TOT PROT 5.8 g/dl (6.4-8.2)
[2022-12-15 08:40] LABS: BLOOD UREA NITROGEN 42.6 mg/dL (7-18)
[2022-12-15] MEDS: PANTOPRAZOLE SODIUM 40 MG VIAL IVPUSH SCH (10:22)
[2022-12-15] MEDS: COLLAGENASE CLOSTRIDIUM HIST. 30 GRAMS TUBE TP SCH ×3 (13:25→23:00)
[2022-12-15] MEDS ORDERED: INSULIN (NOVOLOG) ASPART 100 UNITS/ML 10ML VIAL ONE (16:43)
[2022-12-15] MEDS ORDERED: INSULIN (NOVOLOG MIX 70/30) 100 UNITS/ML MDV SQ ONE (16:43)
[2022-12-15] MEDS: ATORVASTATIN CA 80 MG TABLET (FP) GT SCH (23:00)
[2022-12-15] MEDS: OCULAR LUBRICANT OPHTHALMIC OINTMENT 7 GM TUBE OU SCH (23:00)
[2022-12-16] MEDS: dilTIAZem HCL 30 MG TABLET NGT SCH ×5 (00:46→23:19)
[2022-12-16] MEDS: PIPERACILLIN/TAZOB 2.25 GM 2.25 GM in DEXTROSE 5%-WATER - 50 ML IVPB SCH ×4 (01:03→17:04)
[2022-12-16] MEDS: INSULIN (LEVEMIR) 100 UNITS/ML UNITS SQ SCH (07:05)
[2022-12-16] MEDS: INSULIN SLIDING SCALE (NOVOLOG) 1 VIAL SQ SCH ×4 (07:07→23:22)
[2022-12-16] MEDS ORDERED: INSULIN (NOVOLOG) ASPART 100 UNITS/ML 10ML VIAL ONE ×2 (07:26→11:01)
[2022-12-16] MEDS ORDERED: SODIUM CHLORIDE 250 ML IV PRN (08:31)
[2022-12-16] MEDS ORDERED: EPOETIN ALFA-EPBX 10,000 UNIT/ML VIAL IVPUSH SCH (09:00)
[2022-12-16 09:45] LABS: HEMATOCRIT 24.2 % (32.4-45.2); HEMOGLOBIN 7.9 GM/dL (10.7-15.3); MCH 28.3 pg (25.7-33.7); MCHC 32.7 g/dl (32.0-36.0); MEAN CELL VOLUME 86.7 fl (80-96); MEAN PLT VOLUME 6.2 fl (7.5-11.1); PLATELET COUNT 314 10^3/uL (134-434); RBC 2.79 M/mm3 (3.60-5.2); RDW 15.9 % (11.6-15.6); WHITE BLOOD COUNT 17.1 K/mm3 (4.0-10.0)
[2022-12-16 10:03] LABS: POTASSIUM 3.7 mmol/L (3.5-5.1)
[2022-12-16 10:10] LABS: ALBUMIN 1.7 g/dl (3.4-5.0); BLOOD UREA NITROGEN 54.7 mg/dL (7-18)
[2022-12-16 10:12] LABS: CREATININE 3.4 mg/dL (0.55-1.3)
[2022-12-16 10:13] LABS: BILIRUBIN,TOTAL 0.4 mg/dL (0.2-1); TOT PROT 5.8 g/dl (6.4-8.2)
[2022-12-16] MEDS: PANTOPRAZOLE SODIUM 40 MG VIAL IVPUSH SCH ×2 (10:32→12:32)
[2022-12-16] MEDS: COLLAGENASE CLOSTRIDIUM HIST. 30 GRAMS TUBE TP SCH ×3 (10:33→23:25)
[2022-12-16] MEDS ORDERED: METOPROLOL TARTRATE 5 MG/5 ML VIAL IVPUSH PRN (17:39)
[2022-12-16] MEDS: OCULAR LUBRICANT OPHTHALMIC OINTMENT 7 GM TUBE OU SCH (23:18)
[2022-12-16] MEDS: ATORVASTATIN CA 80 MG TABLET (FP) GT SCH (23:19)
[2022-12-17] MEDS: PIPERACILLIN/TAZOB 2.25 GM 2.25 GM in DEXTROSE 5%-WATER - 50 ML IVPB SCH ×3 (02:02→17:08)
[2022-12-17] MEDS: dilTIAZem HCL 30 MG TABLET NGT SCH ×3 (06:30→18:00)
[2022-12-17] MEDS: INSULIN SLIDING SCALE (NOVOLOG) 1 VIAL SQ SCH ×4 (06:31→23:02)
[2022-12-17] MEDS: INSULIN (LEVEMIR) 100 UNITS/ML UNITS SQ SCH (06:31)
[2022-12-17] MEDS: PANTOPRAZOLE SODIUM 40 MG VIAL IVPUSH SCH (11:21)
[2022-12-17] MEDS: COLLAGENASE CLOSTRIDIUM HIST. 30 GRAMS TUBE TP SCH ×2 (11:21→23:59)
[2022-12-17] MEDS ORDERED: INSULIN (NOVOLOG) ASPART 100 UNITS/ML 10ML VIAL ONE (22:54)
[2022-12-17] MEDS: ATORVASTATIN CA 80 MG TABLET (FP) GT SCH (23:02)
[2022-12-17] MEDS: OCULAR LUBRICANT OPHTHALMIC OINTMENT 7 GM TUBE OU SCH (23:02)
[2022-12-18] MEDS: dilTIAZem HCL 30 MG TABLET NGT SCH ×4 (00:02→17:39)
[2022-12-18] MEDS: PIPERACILLIN/TAZOB 2.25 GM 2.25 GM in DEXTROSE 5%-WATER - 50 ML IVPB SCH ×3 (01:50→17:39)
[2022-12-18] MEDS ORDERED: INSULIN (NOVOLOG) ASPART 100 UNITS/ML 10ML VIAL ONE ×3 (06:56→21:57)
[2022-12-18] MEDS: INSULIN SLIDING SCALE (NOVOLOG) 1 VIAL SQ SCH ×4 (07:19→21:14)
[2022-12-18] MEDS: INSULIN (LEVEMIR) 100 UNITS/ML UNITS SQ SCH (07:19)
[2022-12-18] MEDS: COLLAGENASE CLOSTRIDIUM HIST. 30 GRAMS TUBE TP SCH ×2 (09:18→21:17)
[2022-12-18] MEDS: PANTOPRAZOLE SODIUM 40 MG VIAL IVPUSH SCH (09:18)
[2022-12-18] MEDS ORDERED: SODIUM CHLORIDE 250 ML IV PRN (11:58)
[2022-12-18] MEDS: AMINO ACIDS/PROTEIN HYDROLYS 30 ML LIQUID.PKT GT SCH (17:39)
[2022-12-18] MEDS: ATORVASTATIN CA 80 MG TABLET (FP) GT SCH (21:13)
[2022-12-18] MEDS: OCULAR LUBRICANT OPHTHALMIC OINTMENT 7 GM TUBE OU SCH (21:14)
[2022-12-19] MEDS: dilTIAZem HCL 30 MG TABLET NGT SCH ×5 (00:26→23:47)
[2022-12-19] MEDS: PIPERACILLIN/TAZOB 2.25 GM 2.25 GM in DEXTROSE 5%-WATER - 50 ML IVPB SCH ×3 (03:11→17:08)
[2022-12-19] MEDS: INSULIN SLIDING SCALE (NOVOLOG) 1 VIAL SQ SCH ×3 (07:34→17:05)
[2022-12-19] MEDS: INSULIN (LEVEMIR) 100 UNITS/ML UNITS SQ SCH (07:34)
[2022-12-19] MEDS: AMINO ACIDS/PROTEIN HYDROLYS 30 ML LIQUID.PKT GT SCH ×2 (08:29→17:06)
[2022-12-19] MEDS: COLLAGENASE CLOSTRIDIUM HIST. 30 GRAMS TUBE TP SCH ×2 (09:43→23:50)
[2022-12-19] MEDS: VITAMIN B COMP W-C 1 EA TABLET (NEPHRO-VITE) GT SCH (10:18)
[2022-12-19] MEDS ORDERED: EPOETIN ALFA 10,000 UNIT/1 ML VIAL IVPUSH ONE (12:30)
[2022-12-19 13:58] LABS: HEMATOCRIT 21.9 % (32.4-45.2); HEMOGLOBIN 7.2 GM/dL (10.7-15.3); MCH 28.6 pg (25.7-33.7); MCHC 32.9 g/dl (32.0-36.0); MEAN CELL VOLUME 87.1 fl (80-96); MEAN PLT VOLUME 6.8 fl (7.5-11.1); PLATELET COUNT 274 10^3/uL (134-434); RBC 2.51 M/mm3 (3.60-5.2); RDW 15.6 % (11.6-15.6)
[2022-12-19 14:19] LABS: POTASSIUM 4.1 mmol/L (3.5-5.1)
[2022-12-19 14:21] LABS: CALCIUM 8.1 mg/dL (8.5-10.1)
[2022-12-19 14:22] LABS: ALBUMIN 1.8 g/dl (3.4-5.0)
[2022-12-19 14:23] LABS: ANISOCYTOSIS 3+; MACROCYTOSIS 2+; ROULEAU 2+
[2022-12-19 14:25] LABS: CREATININE 5.3 mg/dL (0.55-1.3)
[2022-12-19 14:26] LABS: TOT PROT 5.7 g/dl (6.4-8.2)
[2022-12-19 14:27] LABS: BILIRUBIN,TOTAL 0.4 mg/dL (0.2-1)
[2022-12-19 14:32] LABS: BLOOD UREA NITROGEN 83.8 mg/dL (7-18)
[2022-12-19] MEDS: PANTOPRAZOLE SODIUM 40 MG VIAL IVPUSH SCH (14:49)
[2022-12-19 14:54] LABS: INR 1.21 (0.83-1.09)
[2022-12-19] MEDS ORDERED: INSULIN (NOVOLOG) ASPART 100 UNITS/ML 10ML VIAL ONE (17:00)
[2022-12-19] MEDS: ATORVASTATIN CA 80 MG TABLET (FP) GT SCH (23:10)
[2022-12-19] MEDS: OCULAR LUBRICANT OPHTHALMIC OINTMENT 7 GM TUBE OU SCH (23:50)
[2022-12-20] MEDS: INSULIN SLIDING SCALE (NOVOLOG) 1 VIAL SQ SCH ×4 (00:30→23:12)
[2022-12-20] MEDS: dilTIAZem HCL 30 MG TABLET NGT SCH ×3 (00:31→17:35)
[2022-12-20] MEDS: PIPERACILLIN/TAZOB 2.25 GM 2.25 GM in DEXTROSE 5%-WATER - 50 ML IVPB SCH ×4 (01:29→23:13)
[2022-12-20] MEDS: INSULIN (LEVEMIR) 100 UNITS/ML UNITS SQ SCH (06:50)
[2022-12-20] MEDS: AMINO ACIDS/PROTEIN HYDROLYS 30 ML LIQUID.PKT GT SCH ×2 (08:54→17:35)
[2022-12-20] MEDS: VITAMIN B COMP W-C 1 EA TABLET (NEPHRO-VITE) GT SCH (09:56)
[2022-12-20] MEDS ORDERED: PROPOFOL 20 ML ONE (09:56)
[2022-12-20] MEDS ORDERED: ONDANSETRON 4 MG/2 ML VIAL ONE (10:19)
[2022-12-20] MEDS ORDERED: METOPROLOL TARTRATE 5 MG/5 ML VIAL IVPUSH PRN (10:32)
[2022-12-20] MEDS ORDERED: INSULIN SLIDING SCALE (NOVOLOG) 1 VIAL SQ SCH (11:00)
[2022-12-20] MEDS ORDERED: ONDANSETRON 4 MG/2 ML VIAL IVPUSH PRN ×2 (11:12→12:04)
[2022-12-20] MEDS ORDERED: ACETAMINOPHEN 1000 MG/100 ML BAG IVPB PRN ×2 (11:13→12:04)
[2022-12-20] MEDS ORDERED: SODIUM CHLORIDE 1,000 ML IV SCH (11:15)
[2022-12-20] MEDS ORDERED: dilTIAZem HCL 30 MG TABLET NGT SCH (12:00)
[2022-12-20] MEDS ORDERED: SODIUM CHLORIDE 250 ML IV PRN (12:01)
[2022-12-20] MEDS ORDERED: METOPROLOL TARTRATE 5 MG/5 ML VIAL IVPB PRN (12:04)
[2022-12-20] MEDS: PANTOPRAZOLE SODIUM 40 MG VIAL IVPUSH SCH (14:03)
[2022-12-20] MEDS: SODIUM CHLORIDE 1,000 ML IV SCH (14:22)
[2022-12-20] MEDS: COLLAGENASE CLOSTRIDIUM HIST. 30 GRAMS TUBE TP SCH (14:25)
[2022-12-20] MEDS ORDERED: PIPERACILLIN/TAZOB 2.25 GM 2.25 GM in DEXTROSE 5%-WATER - 50 ML IVPB SCH (18:00)
[2022-12-20] MEDS ORDERED: INSULIN (NOVOLOG) ASPART 100 UNITS/ML 10ML VIAL ONE (21:21)
[2022-12-20] MEDS ORDERED: ATORVASTATIN CA 80 MG TABLET (FP) GT SCH (22:00)
[2022-12-20] MEDS ORDERED: COLLAGENASE CLOSTRIDIUM HIST. 30 GRAMS TUBE TP SCH (22:00)
[2022-12-20] MEDS ORDERED: OCULAR LUBRICANT OPHTHALMIC OINTMENT 7 GM TUBE OU SCH (22:00)
[2022-12-20] MEDS: ATORVASTATIN CA 80 MG TABLET (FP) GT SCH (23:06)
[2022-12-20] MEDS: OCULAR LUBRICANT OPHTHALMIC OINTMENT 7 GM TUBE OU SCH (23:08)
[2022-12-21] MEDS: PIPERACILLIN/TAZOB 2.25 GM 2.25 GM in DEXTROSE 5%-WATER - 50 ML IVPB SCH ×3 (01:14→17:06)
[2022-12-21] MEDS: dilTIAZem HCL 30 MG TABLET NGT SCH ×5 (01:14→23:00)
[2022-12-21] MEDS: INSULIN (LEVEMIR) 100 UNITS/ML UNITS SQ SCH (06:50)
[2022-12-21] MEDS: INSULIN SLIDING SCALE (NOVOLOG) 1 VIAL SQ SCH ×4 (06:50→22:59)
[2022-12-21] MEDS ORDERED: INSULIN (LEVEMIR) 100 UNITS/ML UNITS SQ SCH (07:00)
[2022-12-21 08:32] LABS: HEMATOCRIT 18.4 % (32.4-45.2); MCH 27.9 pg (25.7-33.7); MCHC 31.7 g/dl (32.0-36.0); MEAN CELL VOLUME 87.9 fl (80-96); MEAN PLT VOLUME 6.5 fl (7.5-11.1); PLATELET COUNT 260 10^3/uL (134-434); RBC 2.09 M/mm3 (3.60-5.2); RDW 15.8 % (11.6-15.6); WHITE BLOOD COUNT 15.4 K/mm3 (4.0-10.0)
[2022-12-21 08:51] LABS: POTASSIUM 3.7 mmol/L (3.5-5.1)
[2022-12-21 08:57] LABS: CALCIUM 7.5 mg/dL (8.5-10.1)
[2022-12-21 08:58] LABS: BLOOD UREA NITROGEN 61.9 mg/dL (7-18)
[2022-12-21 09:19] LABS: HEMOGLOBIN 5.8 GM/dL (10.7-15.3)
[2022-12-21] MEDS ORDERED: PANTOPRAZOLE SODIUM 40 MG VIAL IVPUSH SCH (10:00)
[2022-12-21] MEDS ORDERED: EPOETIN ALFA-EPBX 10,000 UNIT/ML VIAL IVPUSH ONE (11:00)
[2022-12-21] MEDS: PANTOPRAZOLE SODIUM 40 MG VIAL IVPUSH SCH (12:44)
[2022-12-21] MEDS: AMINO ACIDS/PROTEIN HYDROLYS 30 ML LIQUID.PKT GT SCH ×2 (12:46→17:06)
[2022-12-21] MEDS: SODIUM CHLORIDE 1,000 ML IV SCH (12:46)
[2022-12-21] MEDS: VITAMIN B COMP W-C 1 EA TABLET (NEPHRO-VITE) GT SCH (12:56)
[2022-12-21] MEDS: ATORVASTATIN CA 80 MG TABLET (FP) GT SCH (22:54)
[2022-12-21] MEDS: OCULAR LUBRICANT OPHTHALMIC OINTMENT 7 GM TUBE OU SCH (22:54)
[2022-12-22] MEDS: PIPERACILLIN/TAZOB 2.25 GM 2.25 GM in DEXTROSE 5%-WATER - 50 ML IVPB SCH ×2 (01:38→11:02)
[2022-12-22] MEDS: dilTIAZem HCL 30 MG TABLET NGT SCH ×3 (05:36→17:18)
[2022-12-22] MEDS: INSULIN (LEVEMIR) 100 UNITS/ML UNITS SQ SCH (06:39)
[2022-12-22] MEDS: INSULIN SLIDING SCALE (NOVOLOG) 1 VIAL SQ SCH ×3 (06:39→17:16)
[2022-12-22] MEDS: AMINO ACIDS/PROTEIN HYDROLYS 30 ML LIQUID.PKT GT SCH ×2 (11:02→17:20)
[2022-12-22] MEDS: VITAMIN B COMP W-C 1 EA TABLET (NEPHRO-VITE) GT SCH (11:02)
[2022-12-22] MEDS: PANTOPRAZOLE SODIUM 40 MG VIAL IVPUSH SCH (11:02)
[2022-12-22] MEDS ORDERED: INSULIN (NOVOLOG) ASPART 100 UNITS/ML 10ML VIAL ONE (11:06)
[2022-12-22 12:56] LABS: HEMATOCRIT 24.4 % (32.4-45.2); MCHC 32.8 g/dl (32.0-36.0); MEAN CELL VOLUME 85.4 fl (80-96); MEAN PLT VOLUME 6.2 fl (7.5-11.1); PLATELET COUNT 238 10^3/uL (134-434); RBC 2.86 M/mm3 (3.60-5.2); RDW 15.3 % (11.6-15.6); WHITE BLOOD COUNT 14.6 K/mm3 (4.0-10.0)
[2022-12-22 14:21] VITALS: BP 133/56; PULSE 83; RESP 20; TEMP 98.6
== END 2022-12-22 18:28 | DRG 579 ==
LOC: JER 05:38 → JERBED 07:32 → J4W 20:10 → J7W 12-19 21:16
PROVIDERS: ADMIT Internal Medicine; ATTEND Internal Medicine
PROC: 5A1D70Z Performance of Urinary Filtration, Intermittent, Less than 6 Hours Per Day (ICD-10-PCS; 2022-12-12)
PROC: 5A1D70Z Performance of Urinary Filtration, Intermittent, Less than 6 Hours Per Day (ICD-10-PCS; 2022-12-14)
PROC: 5A1D70Z Performance of Urinary Filtration, Intermittent, Less than 6 Hours Per Day (ICD-10-PCS; 2022-12-16)
PROC: 5A1D70Z Performance of Urinary Filtration, Intermittent, Less than 6 Hours Per Day (ICD-10-PCS; 2022-12-19)
PROC: 0KBN0ZZ Excision of Right Hip Muscle, Open Approach (ICD-10-PCS; 2022-12-20)
PROC: 0QB10ZX Excision of Sacrum, Open Approach, Diagnostic (ICD-10-PCS; 2022-12-20)
PROC: 5A1D70Z Performance of Urinary Filtration, Intermittent, Less than 6 Hours Per Day (ICD-10-PCS; 2022-12-20)
PROC: 0KBP0ZZ Excision of Left Hip Muscle, Open Approach (ICD-10-PCS; principal; 2022-12-20 11:00)
DX: L89.150 Pressure ulcer of sacral region, unstageable (principal); E11.00 Type 2 diabetes mellitus with hyperosmolarity without nonketotic hyperglycemic-hyperosmolar coma (NKHHC); N18.6 End stage renal disease; G81.94 Hemiplegia, unspecified affecting left nondominant side; I12.0 Hypertensive chronic kidney disease with stage 5 chronic kidney disease or end stage renal disease; N17.9 Acute kidney failure, unspecified; E11.65 Type 2 diabetes mellitus with hyperglycemia; R79.89 Other specified abnormal findings of blood chemistry; D64.9 Anemia, unspecified; I69.391 Dysphagia following cerebral infarction; R13.19 Other dysphagia; L08.9 Local infection of the skin and subcutaneous tissue, unspecified; I48.0 Paroxysmal atrial fibrillation; E11.22 Type 2 diabetes mellitus with diabetic chronic kidney disease; F41.9 Anxiety disorder, unspecified; D72.829 Elevated white blood cell count, unspecified; Z99.2 Dependence on renal dialysis; Z93.1 Gastrostomy status
CPT/HCPCS: 0241U-QW; 36415; 36430; 71045-TC-FY; 76705-TC; 80048; 80053; 82010; 82550; 82728; 82803; 82962; 82977; 83540; 83550; 83735; 83930; 84100; 84484; 85025; 85027; 85610; 86704; 86705; 86803; 86850; 86900; 86901; 86922; 87040; 87070; 87075; 87186; 87205; 87340; 87517; 87635; 93005; 93010; 94760; 99285-25; J0885; P9058; Q5106

== ENCOUNTER 2022-12-25 13:14 | Observation (INO) | payer OTHER ==
[2022-12-25] MEDS ORDERED: ALTEPLASE (CATHFLO) 2 MG/2 ML VIAL IVPUSH ONE ×2 (14:11→14:12)
[2022-12-25] MEDS ORDERED: SODIUM CHLORIDE 250 ML IV PRN (15:00)
[2022-12-25 17:09] LABS: BASO % 0.4 % (0-2.0); EOS % 0.9 % (0-4.5); HEMATOCRIT 23.2 % (32.4-45.2); HEMOGLOBIN 7.6 GM/dL (10.7-15.3); LYMPH % 9.1 % (8-40); MCH 27.5 pg (25.7-33.7); MCHC 32.5 g/dl (32.0-36.0); MEAN CELL VOLUME 84.6 fl (80-96); MEAN PLT VOLUME 6.2 fl (7.5-11.1); MONO % 5.1 % (3.8-10.2); NEUT % 84.5 % (42.8-82.8); PLATELET COUNT 278 10^3/uL (134-434); RBC 2.75 M/mm3 (3.60-5.2); RDW 16.1 % (11.6-15.6); WHITE BLOOD COUNT 11.5 K/mm3 (4.0-10.0)
[2022-12-25] MEDS ORDERED: ALBUTEROL SO4 0.083% IH SOL 2.5 MG/3 ML VIAL.NEB. NEB PRN (17:27)
[2022-12-25] MEDS ORDERED: ACETAMINOPHEN 650 MG/20.3 ML ORAL SOLUTION (CUPS) NGT PRN (17:27)
[2022-12-25 17:33] LABS: POTASSIUM 3.6 mmol/L (3.5-5.1)
[2022-12-25 17:36] LABS: ALBUMIN 1.5 g/dl (3.4-5.0); CALCIUM 7.6 mg/dL (8.5-10.1); MAGNESIUM 2.1 mg/dL (1.8-2.4)
[2022-12-25 17:39] LABS: CREATININE 5.5 mg/dL (0.55-1.3); PHOSPHOROUS 5.2 mg/dL (2.5-4.9)
[2022-12-25 17:41] LABS: BILIRUBIN,TOTAL 0.2 mg/dL (0.2-1); TOT PROT 5.3 g/dl (6.4-8.2)
[2022-12-25 17:44] LABS: N-TERMINAL BNP 16967.8 pg/ml (5-450)
[2022-12-25 18:06] LABS: BLOOD UREA NITROGEN 92.7 mg/dL (7-18)
[2022-12-25] MEDS ORDERED: EPOETIN ALFA-EPBX 20,000 UNIT/ML VIAL IVPUSH ONE (18:15)
[2022-12-25] MEDS ORDERED: dilTIAZem HCL 30 MG TABLET ONE (20:22)
[2022-12-25] MEDS: dilTIAZem HCL 30 MG TABLET NGT SCH (20:32)
[2022-12-25] MEDS: AMINO ACIDS/PROTEIN HYDROLYS 30 ML LIQUID.PKT GT SCH (21:25)
[2022-12-25] MEDS ORDERED: ALTEPLASE (CATHFLO) 2 MG/2 ML VIAL IVPUSH SCH (22:00)
[2022-12-25] MEDS: OCULAR LUBRICANT OPHTHALMIC OINTMENT 7 GM TUBE OU SCH (22:07)
[2022-12-25] MEDS ORDERED: ATORVASTATIN CA 80 MG TABLET (FP) ONE (22:09)
[2022-12-25] MEDS: ATORVASTATIN CA 80 MG TABLET (FP) GT SCH (22:22)
[2022-12-26] MEDS: COLLAGENASE CLOSTRIDIUM HIST. 30 GRAMS TUBE TP SCH ×3 (01:49→22:02)
[2022-12-26] MEDS: dilTIAZem HCL 30 MG TABLET NGT SCH ×4 (03:33→17:25)
[2022-12-26 05:55] VITALS: BMI 30.4
[2022-12-26] MEDS ORDERED: INSULIN (LEVEMIR) 100 UNITS/ML UNITS SQ SCH (07:00)
[2022-12-26] MEDS: AMINO ACIDS/PROTEIN HYDROLYS 30 ML LIQUID.PKT GT SCH ×2 (08:52→17:25)
[2022-12-26 09:58] LABS: BASO % 0.2 % (0-2.0); EOS % 0.5 % (0-4.5); HEMATOCRIT 25.9 % (32.4-45.2); HEMOGLOBIN 8.5 GM/dL (10.7-15.3); LYMPH % 9.6 % (8-40); MCH 27.9 pg (25.7-33.7); MCHC 32.9 g/dl (32.0-36.0); MEAN CELL VOLUME 84.7 fl (80-96); MEAN PLT VOLUME 6.6 fl (7.5-11.1); MONO % 6.5 % (3.8-10.2); NEUT % 83.2 % (42.8-82.8); PLATELET COUNT 324 10^3/uL (134-434); RBC 3.06 M/mm3 (3.60-5.2); RDW 15.9 % (11.6-15.6); WHITE BLOOD COUNT 11.9 K/mm3 (4.0-10.0)
[2022-12-26] MEDS ORDERED: MIDODRINE HCL 5 MG TABLET GT SCH (10:00)
[2022-12-26] MEDS ORDERED: PANTOPRAZOLE SOD 40 MG SUSPENSION PACKET PO SCH (10:00)
[2022-12-26 10:11] LABS: POTASSIUM 3.6 mmol/L (3.5-5.1)
[2022-12-26 10:13] LABS: CALCIUM 8.1 mg/dL (8.5-10.1)
[2022-12-26 10:14] LABS: ALBUMIN 1.7 g/dl (3.4-5.0)
[2022-12-26 10:16] LABS: CREATININE 3.9 mg/dL (0.55-1.3)
[2022-12-26 10:19] LABS: BILIRUBIN,TOTAL 0.4 mg/dL (0.2-1)
[2022-12-26 10:28] LABS: BLOOD UREA NITROGEN 53.6 mg/dL (7-18)
[2022-12-26] MEDS ORDERED: SODIUM CHLORIDE 250 ML IV PRN (16:52)
[2022-12-26] MEDS: ATORVASTATIN CA 80 MG TABLET (FP) GT SCH (22:01)
[2022-12-26] MEDS: OCULAR LUBRICANT OPHTHALMIC OINTMENT 7 GM TUBE OU SCH (22:03)
[2022-12-27] MEDS: dilTIAZem HCL 30 MG TABLET NGT SCH ×4 (00:57→22:58)
[2022-12-27] MEDS ORDERED: LIDOCAINE HCL 1%, 10 MG/ML (20ML VIAL) ONE (07:06)
[2022-12-27] MEDS ORDERED: HEPARIN NA (PORCINE) 5,000 UNITS/ML 1ML VIAL ONE (07:06)
[2022-12-27] MEDS ORDERED: ceFAZolin SODIUM 1 GM VIAL IVPB ONE (08:50)
[2022-12-27] MEDS ORDERED: LIDOCAINE HCL 1%, 10 MG/ML (20ML VIAL) NR ONE (08:52)
[2022-12-27] MEDS ORDERED: HEPARIN NA (PORCINE) 1,000 UNITS/ML 10ML M-D VIAL SQ ONE (08:54)
[2022-12-27] MEDS ORDERED: ONDANSETRON 4 MG/2 ML VIAL IVPUSH PRN (09:17)
[2022-12-27] MEDS ORDERED: ACETAMINOPHEN 650 MG/20.3 ML ORAL SOLUTION (CUPS) NGT PRN (09:37)
[2022-12-27] MEDS ORDERED: ALBUTEROL SO4 0.083% IH SOL 2.5 MG/3 ML VIAL.NEB. NEB PRN (09:37)
[2022-12-27] MEDS ORDERED: SODIUM CHLORIDE 1,000 ML IV SCH (09:45)
[2022-12-27] MEDS: MIDODRINE HCL 5 MG TABLET GT SCH (11:56)
[2022-12-27] MEDS: COLLAGENASE CLOSTRIDIUM HIST. 30 GRAMS TUBE TP SCH ×2 (11:58→22:31)
[2022-12-27 15:49] LABS: HEMATOCRIT 25.3 % (32.4-45.2); HEMOGLOBIN 8.1 GM/dL (10.7-15.3); MCH 27.6 pg (25.7-33.7); MCHC 31.9 g/dl (32.0-36.0); MEAN CELL VOLUME 86.5 fl (80-96); MEAN PLT VOLUME 6.6 fl (7.5-11.1); PLATELET COUNT 339 10^3/uL (134-434); RBC 2.92 M/mm3 (3.60-5.2); WHITE BLOOD COUNT 11.2 K/mm3 (4.0-10.0)
[2022-12-27] MEDS ORDERED: SODIUM CHLORIDE 250 ML IV PRN (16:05)
[2022-12-27 16:13] LABS: POTASSIUM 3.8 mmol/L (3.5-5.1)
[2022-12-27] MEDS ORDERED: EPOETIN ALFA-EPBX 20,000 UNIT/ML VIAL IVPUSH ONE ×2 (16:15→16:52)
[2022-12-27 16:18] LABS: ALBUMIN 1.7 g/dl (3.4-5.0); BLOOD UREA NITROGEN 70.5 mg/dL (7-18)
[2022-12-27 16:22] LABS: CREATININE 5.2 mg/dL (0.55-1.3)
[2022-12-27 16:24] LABS: BILIRUBIN,TOTAL 0.4 mg/dL (0.2-1); TOT PROT 5.8 g/dl (6.4-8.2)
[2022-12-27] MEDS ORDERED: OCULAR LUBRICANT OPHTHALMIC OINTMENT 7 GM TUBE OU SCH (22:00)
[2022-12-27] MEDS ORDERED: ATORVASTATIN CA 80 MG TABLET (FP) GT SCH (22:00)
[2022-12-27 22:31] VITALS: RESP 20
[2022-12-27] MEDS: AMINO ACIDS/PROTEIN HYDROLYS 30 ML LIQUID.PKT GT SCH (22:48)
[2022-12-28] MEDS: dilTIAZem HCL 30 MG TABLET NGT SCH ×4 (02:58→17:05)
[2022-12-28] MEDS ORDERED: INSULIN (LEVEMIR) 100 UNITS/ML UNITS SQ SCH (07:00)
[2022-12-28] MEDS: AMINO ACIDS/PROTEIN HYDROLYS 30 ML LIQUID.PKT GT SCH ×2 (08:41→17:05)
[2022-12-28] MEDS: MIDODRINE HCL 5 MG TABLET GT SCH (09:10)
[2022-12-28] MEDS: COLLAGENASE CLOSTRIDIUM HIST. 30 GRAMS TUBE TP SCH (11:34)
[2022-12-28 11:53] VITALS: PULSE 100
[2022-12-28 14:35] VITALS: BP 177/70
[2022-12-28] MEDS ORDERED: FAMOTIDINE 20 MG/2.5 ML ORAL LIQUID GT SCH ×2 (14:45)
[2022-12-28 15:31] VITALS: TEMP 98.8
== END 2022-12-28 20:30 ==
LOC: JER 13:14 → JERBED 15:43 → INTOOBSV 15:43 → UNDOADMOB 15:43 → JERBED 17:29 → J7W 12-26 02:28
PROVIDERS: ADMIT Family Medicine; ATTEND Internal Medicine
PROC: 3E0F7GC Introduction of Other Therapeutic Substance into Respiratory Tract, Via Natural or Artificial Opening (ICD-10-PCS; 2022-12-25)
PROC: 3E033GC Introduction of Other Therapeutic Substance into Peripheral Vein, Percutaneous Approach (ICD-10-PCS; 2022-12-25)
PROC: 3E023GC Introduction of Other Therapeutic Substance into Muscle, Percutaneous Approach (ICD-10-PCS; 2022-12-25)
PROC: 3E013VG Introduction of Insulin into Subcutaneous Tissue, Percutaneous Approach (ICD-10-PCS; 2022-12-25)
PROC: 3E03329 Introduction of Other Anti-infective into Peripheral Vein, Percutaneous Approach (ICD-10-PCS; 2022-12-25)
PROC: 0J2TXYZ Change Other Device in Trunk Subcutaneous Tissue and Fascia, External Approach (ICD-10-PCS; principal; 2022-12-27 07:30)
DX: T82.868A Thrombosis due to vascular prosthetic devices, implants and grafts, initial encounter (principal); N18.6 End stage renal disease; E11.22 Type 2 diabetes mellitus with diabetic chronic kidney disease; E11.65 Type 2 diabetes mellitus with hyperglycemia; I12.0 Hypertensive chronic kidney disease with stage 5 chronic kidney disease or end stage renal disease; Z99.2 Dependence on renal dialysis; F03.90 Unspecified dementia, unspecified severity, without behavioral disturbance, psychotic disturbance, mood disturbance, and anxiety; I69.959 Hemiplegia and hemiparesis following unspecified cerebrovascular disease affecting unspecified side; I48.91 Unspecified atrial fibrillation; N17.9 Acute kidney failure, unspecified; E78.00 Pure hypercholesterolemia, unspecified; F41.9 Anxiety disorder, unspecified; Z79.4 Long term (current) use of insulin; D64.9 Anemia, unspecified; M62.81 Muscle weakness (generalized); Y82.8 Other medical devices associated with adverse incidents; Y92.129 Unspecified place in nursing home as the place of occurrence of the external cause
CPT/HCPCS: 36581; 77001; 94640; 96372; 96374; 96375; 96376; C1751; 36415; 71045-TC-FY; 76000-TC-FY; 80048; 80053; 82962; 83735; 83880; 84100; 84443; 85025; 85027; 87635; 94760; 99285-25; C1750; G0378; J1644; J2997

== ENCOUNTER 2023-01-01 14:46 | Inpatient (IN) | payer OTHER ==
[~2023-01-01 14:46] MED LIST: ALTEPLASE (CATHFLO) 2 MG/2 ML VIAL IVPUSH ONE
[2023-01-01] MEDS ORDERED: ALTEPLASE (CATHFLO) 2 MG/2 ML VIAL IVPUSH ONE ×2 (14:58)
[2023-01-01 16:57] LABS: BASO % 0.4 % (0-2.0); EOS % 0.9 % (0-4.5); HEMATOCRIT 24.9 % (32.4-45.2); HEMOGLOBIN 8.1 GM/dL (10.7-15.3); MCH 28.1 pg (25.7-33.7); MCHC 32.6 g/dl (32.0-36.0); MEAN CELL VOLUME 86.1 fl (80-96); MEAN PLT VOLUME 6.4 fl (7.5-11.1); MONO % 5.2 % (3.8-10.2); NEUT % 83.5 % (42.8-82.8); PLATELET COUNT 258 10^3/uL (134-434); RBC 2.89 M/mm3 (3.60-5.2); RDW 15.9 % (11.6-15.6); WHITE BLOOD COUNT 10.5 K/mm3 (4.0-10.0)
[2023-01-01 17:04] LABS: INR 1.17 (0.83-1.09); PROTHROMBIN TIME (PATIENT) 13.6 SEC (9.7-13.0)
[2023-01-01 17:06] LABS: ACTIVATED PTT 53.8 SECONDS (25.2-36.5)
[2023-01-01 18:35] LABS: ALBUMIN 1.8 g/dl (3.4-5.0); BILIRUBIN,TOTAL 0.3 mg/dL (0.2-1); BLOOD UREA NITROGEN 99.1 mg/dL (7-18); CALCIUM 8.6 mg/dL (8.5-10.1); CREATININE 6.5 mg/dL (0.55-1.3); MAGNESIUM 2.6 mg/dL (1.8-2.4); PHOSPHOROUS 4.4 mg/dL (2.5-4.9); POTASSIUM 3.7 mmol/L (3.5-5.1); TOT PROT 6.2 g/dl (6.4-8.2)
[2023-01-01] MEDS: INSULIN SLIDING SCALE (NOVOLOG) 1 VIAL SQ SCH (22:13)
[2023-01-02] MEDS ORDERED: ALBUTEROL SO4 0.083% IH SOL 2.5 MG/3 ML VIAL.NEB. NEB PRN (03:43)
[2023-01-02] MEDS ORDERED: dilTIAZem HCL 30 MG TABLET NGT SCH (06:00)
[2023-01-02] MEDS: INSULIN SLIDING SCALE (NOVOLOG) 1 VIAL SQ SCH ×4 (06:12→23:52)
[2023-01-02 06:26] LABS: BASO % 0.3 % (0-2.0); EOS % 1.1 % (0-4.5); HEMATOCRIT 22.5 % (32.4-45.2); HEMOGLOBIN 7.5 GM/dL (10.7-15.3); LYMPH % 12.7 % (8-40); MCH 28.3 pg (25.7-33.7); MCHC 33.1 g/dl (32.0-36.0); MEAN CELL VOLUME 85.5 fl (80-96); MEAN PLT VOLUME 6.1 fl (7.5-11.1); MONO % 6.1 % (3.8-10.2); NEUT % 79.8 % (42.8-82.8); PLATELET COUNT 233 10^3/uL (134-434); RBC 2.64 M/mm3 (3.60-5.2); RDW 16.4 % (11.6-15.6); WHITE BLOOD COUNT 9.8 K/mm3 (4.0-10.0)
[2023-01-02 06:53] LABS: POTASSIUM 3.9 mmol/L (3.5-5.1)
[2023-01-02 06:56] LABS: CALCIUM 8.4 mg/dL (8.5-10.1)
[2023-01-02 06:57] LABS: BLOOD UREA NITROGEN 103.1 mg/dL (7-18)
[2023-01-02] MEDS ORDERED: SODIUM CHLORIDE 250 ML IV PRN (09:08)
[2023-01-02] MEDS ORDERED: MIDODRINE HCL 5 MG TABLET GT SCH (10:00)
[2023-01-02] MEDS ORDERED: EPOETIN ALFA-EPBX 10,000 UNIT/ML VIAL IVPUSH ONE (10:00)
[2023-01-02] MEDS ORDERED: HEPARIN NA (PORCINE) 5,000 UNITS/ML 1ML VIAL IVPUSH ONE (10:00)
[2023-01-02] MEDS: HEPARIN NA (PORCINE) 5,000 UNITS/ML 1ML VIAL IVPUSH SCH ×3 (10:13→16:39)
[2023-01-02] MEDS: POLYETHYLENE GLYCOL (HEALTHYLAX) 3350 17 GM PACKET GT SCH ×2 (11:00→22:16)
[2023-01-02] MEDS: AMINO ACIDS/PROTEIN HYDROLYS 30 ML LIQUID.PKT GT SCH ×2 (11:00→16:00)
[2023-01-02] MEDS: NYSTATIN/TRIAMCINOLONE TOPICAL CREAM 15 GM TUBE TP SCH (11:00)
[2023-01-02] MEDS: VITAMIN B COMP W-C 1 EA TABLET (NEPHRO-VITE) GT SCH (11:00)
[2023-01-02 13:05] LABS: ALBUMIN 1.7 g/dl (3.4-5.0)
[2023-01-02 13:10] LABS: BILIRUBIN,TOTAL 0.3 mg/dL (0.2-1); TOT PROT 5.8 g/dl (6.4-8.2)
[2023-01-02] MEDS: amLODIPine BESYLATE 5 MG TABLET (FP) GT SCH (16:00)
[2023-01-02] MEDS: COLLAGENASE CLOSTRIDIUM HIST. 30 GRAMS TUBE TP SCH (16:39)
[2023-01-02] MEDS ORDERED: METOPROLOL TARTRATE 5 MG/5 ML VIAL IVPUSH PRN ×2 (17:22→19:19)
[2023-01-02] MEDS ORDERED: ATORVASTATIN CA 80 MG TABLET (FP) GT SCH (22:00)
[2023-01-03] MEDS: NYSTATIN/TRIAMCINOLONE TOPICAL CREAM 15 GM TUBE TP SCH ×3 (00:06→22:16)
[2023-01-03] MEDS: OCULAR LUBRICANT OPHTHALMIC OINTMENT 7 GM TUBE OU SCH ×2 (00:07→22:15)
[2023-01-03] MEDS: COLLAGENASE CLOSTRIDIUM HIST. 30 GRAMS TUBE TP SCH ×3 (00:09→22:17)
[2023-01-03] MEDS: INSULIN SLIDING SCALE (NOVOLOG) 1 VIAL SQ SCH ×4 (06:57→22:16)
[2023-01-03 10:17] LABS: BASO % 0.3 % (0-2.0); EOS % 0.6 % (0-4.5); HEMATOCRIT 23.1 % (32.4-45.2); HEMOGLOBIN 7.6 GM/dL (10.7-15.3); LYMPH % 10.7 % (8-40); MCH 28.3 pg (25.7-33.7); MEAN CELL VOLUME 85.6 fl (80-96); MEAN PLT VOLUME 6.2 fl (7.5-11.1); MONO % 6.1 % (3.8-10.2); NEUT % 82.3 % (42.8-82.8); PLATELET COUNT 183 10^3/uL (134-434); RDW 16.2 % (11.6-15.6); WHITE BLOOD COUNT 10.5 K/mm3 (4.0-10.0)
[2023-01-03] MEDS: AMINO ACIDS/PROTEIN HYDROLYS 30 ML LIQUID.PKT GT SCH ×2 (10:18→17:50)
[2023-01-03] MEDS: VITAMIN B COMP W-C 1 EA TABLET (NEPHRO-VITE) GT SCH (10:18)
[2023-01-03] MEDS: amLODIPine BESYLATE 5 MG TABLET (FP) GT SCH (10:18)
[2023-01-03] MEDS: POLYETHYLENE GLYCOL (HEALTHYLAX) 3350 17 GM PACKET GT SCH ×2 (10:18→22:15)
[2023-01-03 10:29] LABS: POTASSIUM 3.6 mmol/L (3.5-5.1)
[2023-01-03 10:36] LABS: ALBUMIN 1.6 g/dl (3.4-5.0)
[2023-01-03 10:38] LABS: TOT PROT 5.6 g/dl (6.4-8.2)
[2023-01-03 10:39] LABS: BILIRUBIN,TOTAL 0.3 mg/dL (0.2-1); CREATININE 4.2 mg/dL (0.55-1.3)
[2023-01-03 10:52] LABS: BLOOD UREA NITROGEN 52.3 mg/dL (7-18)
[2023-01-03] MEDS ORDERED: INSULIN (NOVOLOG) ASPART 100 UNITS/ML 10ML VIAL ONE ×4 (12:05→21:34)
[2023-01-04] MEDS ORDERED: INSULIN (NOVOLOG) ASPART 100 UNITS/ML 10ML VIAL ONE ×2 (06:03→12:09)
[2023-01-04] MEDS: INSULIN SLIDING SCALE (NOVOLOG) 1 VIAL SQ SCH ×4 (06:36→22:18)
[2023-01-04] MEDS: COLLAGENASE CLOSTRIDIUM HIST. 30 GRAMS TUBE TP SCH ×2 (09:55→22:13)
[2023-01-04] MEDS: POLYETHYLENE GLYCOL (HEALTHYLAX) 3350 17 GM PACKET GT SCH ×2 (09:55→22:13)
[2023-01-04] MEDS: AMINO ACIDS/PROTEIN HYDROLYS 30 ML LIQUID.PKT GT SCH ×2 (09:57→18:25)
[2023-01-04] MEDS: VITAMIN B COMP W-C 1 EA TABLET (NEPHRO-VITE) GT SCH (09:57)
[2023-01-04] MEDS: amLODIPine BESYLATE 5 MG TABLET (FP) GT SCH (09:57)
[2023-01-04] MEDS: NYSTATIN/TRIAMCINOLONE TOPICAL CREAM 15 GM TUBE TP SCH ×2 (09:58→22:14)
[2023-01-04 10:37] LABS: HEMATOCRIT 22.2 % (32.4-45.2); HEMOGLOBIN 7.3 GM/dL (10.7-15.3); MCH 28.2 pg (25.7-33.7); MCHC 32.8 g/dl (32.0-36.0); MEAN PLT VOLUME 6.2 fl (7.5-11.1); PLATELET COUNT 204 10^3/uL (134-434); RBC 2.58 M/mm3 (3.60-5.2); WHITE BLOOD COUNT 11.8 K/mm3 (4.0-10.0)
[2023-01-04 11:13] LABS: POTASSIUM 3.4 mmol/L (3.5-5.1)
[2023-01-04 11:14] LABS: CALCIUM 8.3 mg/dL (8.5-10.1)
[2023-01-04 11:18] LABS: BLOOD UREA NITROGEN 77.7 mg/dL (7-18)
[2023-01-04] MEDS ORDERED: EPOETIN ALFA-EPBX 10,000 UNIT/ML VIAL IVPUSH ONE (12:58)
[2023-01-04] MEDS ORDERED: SODIUM CHLORIDE 250 ML IV PRN (12:58)
[2023-01-04] MEDS: OCULAR LUBRICANT OPHTHALMIC OINTMENT 7 GM TUBE OU SCH (22:14)
[2023-01-05] MEDS: INSULIN SLIDING SCALE (NOVOLOG) 1 VIAL SQ SCH ×4 (06:24→23:07)
[2023-01-05] MEDS ORDERED: LIDOCAINE HCL 1%, 10 MG/ML (20ML VIAL) ONE (07:27)
[2023-01-05] MEDS ORDERED: HEPARIN NA (PORCINE) 5,000 UNITS/ML 1ML VIAL ONE (07:39)
[2023-01-05] MEDS ORDERED: oxyCODONE HCL 5 MG TABLET PO PRN ×2 (07:41→11:35)
[2023-01-05] MEDS ORDERED: SODIUM CHLORIDE 1,000 ML IV SCH ×2 (07:45→11:35)
[2023-01-05] MEDS ORDERED: PROPOFOL 20 ML ONE (08:57)
[2023-01-05] MEDS: AMINO ACIDS/PROTEIN HYDROLYS 30 ML LIQUID.PKT GT SCH ×2 (09:00→17:42)
[2023-01-05] MEDS ORDERED: LIDOCAINE HCL 1%, 10 MG/ML (20ML VIAL) INF ONE (09:00)
[2023-01-05] MEDS ORDERED: VANCOMYCIN 1 GM in NS (PRE-DOCKED) 1,000 MG/250 ML (RESTRICTED TO ID ONLY) IVPB ONE (09:00)
[2023-01-05] MEDS ORDERED: HEPARIN NA (PORCINE) 5,000 UNITS/ML 1ML VIAL SQ ONE (09:01)
[2023-01-05] MEDS: POLYETHYLENE GLYCOL (HEALTHYLAX) 3350 17 GM PACKET GT SCH ×2 (09:01→23:08)
[2023-01-05] MEDS: VITAMIN B COMP W-C 1 EA TABLET (NEPHRO-VITE) GT SCH ×2 (09:02→10:23)
[2023-01-05] MEDS: NYSTATIN/TRIAMCINOLONE TOPICAL CREAM 15 GM TUBE TP SCH ×2 (10:24→23:09)
[2023-01-05] MEDS: amLODIPine BESYLATE 5 MG TABLET (FP) GT SCH (10:24)
[2023-01-05] MEDS ORDERED: METOPROLOL TARTRATE 5 MG/5 ML VIAL IVPUSH PRN (11:35)
[2023-01-05] MEDS ORDERED: ALBUTEROL SO4 0.083% IH SOL 2.5 MG/3 ML VIAL.NEB. NEB PRN (11:35)
[2023-01-05] MEDS: COLLAGENASE CLOSTRIDIUM HIST. 30 GRAMS TUBE TP SCH ×2 (11:49→23:07)
[2023-01-05] MEDS ORDERED: SODIUM CHLORIDE 250 ML IV PRN ×2 (14:18→17:23)
[2023-01-05] MEDS ORDERED: EPOETIN ALFA-EPBX 10,000 UNIT/ML VIAL IVPUSH ONE (15:00)
[2023-01-05] MEDS ORDERED: HEPARIN NA (PORCINE) 5,000 UNITS/ML 1ML VIAL IVPUSH ONE (15:24)
[2023-01-05] MEDS: HEPARIN NA (PORCINE) 5,000 UNITS/ML 1ML VIAL IVPUSH SCH ×2 (15:30→16:30)
[2023-01-05] MEDS ORDERED: HEPARIN NA (PORCINE) 5,000 UNITS/ML 1ML VIAL IVPUSH SCH (17:30)
[2023-01-05] MEDS: OCULAR LUBRICANT OPHTHALMIC OINTMENT 7 GM TUBE OU SCH (23:09)
[2023-01-05] MEDS ORDERED: INSULIN (NOVOLOG) ASPART 100 UNITS/ML 10ML VIAL ONE (23:15)
[2023-01-06] MEDS: INSULIN SLIDING SCALE (NOVOLOG) 1 VIAL SQ SCH ×4 (06:17→22:30)
[2023-01-06] MEDS: AMINO ACIDS/PROTEIN HYDROLYS 30 ML LIQUID.PKT GT SCH ×2 (08:56→17:15)
[2023-01-06] MEDS: POLYETHYLENE GLYCOL (HEALTHYLAX) 3350 17 GM PACKET GT SCH ×2 (09:23→22:24)
[2023-01-06] MEDS: amLODIPine BESYLATE 5 MG TABLET (FP) GT SCH (09:23)
[2023-01-06] MEDS: VITAMIN B COMP W-C 1 EA TABLET (NEPHRO-VITE) GT SCH (09:23)
[2023-01-06] MEDS: NYSTATIN/TRIAMCINOLONE TOPICAL CREAM 15 GM TUBE TP SCH ×2 (09:24→22:27)
[2023-01-06 09:29] LABS: BASO % 0.3 % (0-2.0); EOS % 0.2 % (0-4.5); HEMATOCRIT 23.4 % (32.4-45.2); HEMOGLOBIN 7.8 GM/dL (10.7-15.3); LYMPH % 4.9 % (8-40); MCH 28.4 pg (25.7-33.7); MCHC 33.1 g/dl (32.0-36.0); MEAN CELL VOLUME 85.7 fl (80-96); MEAN PLT VOLUME 6.3 fl (7.5-11.1); MONO % 4.8 % (3.8-10.2); NEUT % 89.8 % (42.8-82.8); PLATELET COUNT 208 10^3/uL (134-434); RBC 2.73 M/mm3 (3.60-5.2); RDW 16.7 % (11.6-15.6); WHITE BLOOD COUNT 10.9 K/mm3 (4.0-10.0)
[2023-01-06 09:59] LABS: POTASSIUM 3.6 mmol/L (3.5-5.1)
[2023-01-06 10:07] LABS: CALCIUM 8.3 mg/dL (8.5-10.1)
[2023-01-06 10:08] LABS: CREATININE 3.4 mg/dL (0.55-1.3)
[2023-01-06 10:09] LABS: BILIRUBIN,TOTAL 0.3 mg/dL (0.2-1)
[2023-01-06 10:10] LABS: TOT PROT 5.7 g/dl (6.4-8.2)
[2023-01-06 10:11] LABS: ALBUMIN 1.6 g/dl (3.4-5.0)
[2023-01-06 10:18] LABS: BLOOD UREA NITROGEN 45.9 mg/dL (7-18)
[2023-01-06] MEDS: COLLAGENASE CLOSTRIDIUM HIST. 30 GRAMS TUBE TP SCH ×2 (11:02→22:43)
[2023-01-06] MEDS ORDERED: INSULIN (NOVOLOG) ASPART 100 UNITS/ML 10ML VIAL ONE ×3 (11:10→22:29)
[2023-01-06 14:11] VITALS: BMI 31.2
[2023-01-06] MEDS: OCULAR LUBRICANT OPHTHALMIC OINTMENT 7 GM TUBE OU SCH (22:27)
[2023-01-07] MEDS: INSULIN SLIDING SCALE (NOVOLOG) 1 VIAL SQ SCH ×4 (06:52→22:32)
[2023-01-07 09:15] LABS: HEMATOCRIT 21.5 % (32.4-45.2); MCH 28.4 pg (25.7-33.7); MCHC 32.7 g/dl (32.0-36.0); MEAN CELL VOLUME 86.7 fl (80-96); MEAN PLT VOLUME 6.1 fl (7.5-11.1); PLATELET COUNT 219 10^3/uL (134-434); RBC 2.48 M/mm3 (3.60-5.2); RDW 16.5 % (11.6-15.6); WHITE BLOOD COUNT 10.3 K/mm3 (4.0-10.0)
[2023-01-07 09:37] LABS: POTASSIUM 3.5 mmol/L (3.5-5.1)
[2023-01-07] MEDS: amLODIPine BESYLATE 5 MG TABLET (FP) GT SCH (09:46)
[2023-01-07] MEDS: VITAMIN B COMP W-C 1 EA TABLET (NEPHRO-VITE) GT SCH (09:46)
[2023-01-07] MEDS: POLYETHYLENE GLYCOL (HEALTHYLAX) 3350 17 GM PACKET GT SCH ×2 (09:46→21:48)
[2023-01-07] MEDS: AMINO ACIDS/PROTEIN HYDROLYS 30 ML LIQUID.PKT GT SCH ×2 (09:46→17:00)
[2023-01-07 09:47] LABS: CALCIUM 8.5 mg/dL (8.5-10.1)
[2023-01-07] MEDS: COLLAGENASE CLOSTRIDIUM HIST. 30 GRAMS TUBE TP SCH ×2 (09:47→21:49)
[2023-01-07] MEDS: NYSTATIN/TRIAMCINOLONE TOPICAL CREAM 15 GM TUBE TP SCH ×2 (09:47→21:49)
[2023-01-07 09:48] LABS: ALBUMIN 1.7 g/dl (3.4-5.0)
[2023-01-07 09:51] LABS: CREATININE 4.4 mg/dL (0.55-1.3)
[2023-01-07 09:52] LABS: BILIRUBIN,TOTAL 0.3 mg/dL (0.2-1); TOT PROT 5.8 g/dl (6.4-8.2)
[2023-01-07 10:00] LABS: BLOOD UREA NITROGEN 77.2 mg/dL (7-18)
[2023-01-07] MEDS ORDERED: INSULIN (NOVOLOG) ASPART 100 UNITS/ML 10ML VIAL ONE (13:18)
[2023-01-07] MEDS: OCULAR LUBRICANT OPHTHALMIC OINTMENT 7 GM TUBE OU SCH (21:49)
[2023-01-08] MEDS: INSULIN SLIDING SCALE (NOVOLOG) 1 VIAL SQ SCH ×4 (06:25→22:01)
[2023-01-08] MEDS ORDERED: SODIUM CHLORIDE 250 ML IV PRN (07:17)
[2023-01-08] MEDS ORDERED: EPOETIN ALFA-EPBX 20,000 UNIT/ML VIAL IVPUSH ONE (09:00)
[2023-01-08] MEDS: ALBUMIN HUMAN 25% 12.5 GM/50 ML VIAL IV SCH ×4 (09:30→11:30)
[2023-01-08 09:52] LABS: HEMATOCRIT 20.9 % (32.4-45.2); HEMOGLOBIN 7.1 GM/dL (10.7-15.3); MCH 28.6 pg (25.7-33.7); MCHC 33.8 g/dl (32.0-36.0); MEAN CELL VOLUME 84.6 fl (80-96); MEAN PLT VOLUME 6.1 fl (7.5-11.1); PLATELET COUNT 218 10^3/uL (134-434); RBC 2.47 M/mm3 (3.60-5.2); RDW 16.8 % (11.6-15.6); WHITE BLOOD COUNT 10.2 K/mm3 (4.0-10.0)
[2023-01-08 11:26] LABS: ANISOCYTOSIS 2+; MACROCYTOSIS 1+; OVALOCYTE 2+; ROULEAU 0
[2023-01-08 12:10] LABS: ALBUMIN 1.6 g/dl (3.4-5.0); ALK PHOS 109 U/L (45-117); ANION GAP 12 MMOL/L (8-16); BILIRUBIN,TOTAL 0.3 mg/dL (0.2-1); BLOOD UREA NITROGEN 104.1 mg/dL (7-18); CALCIUM 8.4 mg/dL (8.5-10.1); CHLORIDE 102 mmol/L (98-107); CO2 30 mmol/L (21-32); CREATININE 5.3 mg/dL (0.55-1.3); GLUCOSE,RANDOM 194 mg/dL (74-106); POTASSIUM 3.6 mmol/L (3.5-5.1); SGOT/AST 49 U/L (15-37); SGPT/ALT 69 U/L (13-61); SODIUM 143 mmol/L (136-145); TOT PROT 5.8 g/dl (6.4-8.2)
[2023-01-08] MEDS: POLYETHYLENE GLYCOL (HEALTHYLAX) 3350 17 GM PACKET GT SCH ×2 (12:24→21:56)
[2023-01-08] MEDS: AMINO ACIDS/PROTEIN HYDROLYS 30 ML LIQUID.PKT GT SCH ×2 (12:25→18:40)
[2023-01-08] MEDS: NYSTATIN/TRIAMCINOLONE TOPICAL CREAM 15 GM TUBE TP SCH ×2 (12:25→21:56)
[2023-01-08] MEDS: COLLAGENASE CLOSTRIDIUM HIST. 30 GRAMS TUBE TP SCH ×2 (12:26→21:56)
[2023-01-08] MEDS: VITAMIN B COMP W-C 1 EA TABLET (NEPHRO-VITE) GT SCH (12:26)
[2023-01-08] MEDS: amLODIPine BESYLATE 5 MG TABLET (FP) GT SCH (12:26)
[2023-01-08] MEDS: OCULAR LUBRICANT OPHTHALMIC OINTMENT 7 GM TUBE OU SCH (21:56)
[2023-01-09] MEDS ORDERED: INSULIN (NOVOLOG) ASPART 100 UNITS/ML 10ML VIAL ONE ×3 (05:36→18:00)
[2023-01-09] MEDS: INSULIN SLIDING SCALE (NOVOLOG) 1 VIAL SQ SCH ×4 (06:00→22:49)
[2023-01-09] MEDS ORDERED: SODIUM CHLORIDE 250 ML IV PRN (09:00)
[2023-01-09] MEDS ORDERED: EPOETIN ALFA-EPBX 20,000 UNIT/ML VIAL SQ ONE (09:00)
[2023-01-09] MEDS ORDERED: HEPARIN NA (PORCINE) 5,000 UNITS/ML 1ML VIAL IVPUSH ONE (09:00)
[2023-01-09] MEDS: HEPARIN NA (PORCINE) 5,000 UNITS/ML 1ML VIAL IVPUSH SCH ×3 (09:29→10:25)
[2023-01-09] MEDS: POLYETHYLENE GLYCOL (HEALTHYLAX) 3350 17 GM PACKET GT SCH ×2 (10:16→22:26)
[2023-01-09] MEDS: AMINO ACIDS/PROTEIN HYDROLYS 30 ML LIQUID.PKT GT SCH ×3 (10:17→17:54)
[2023-01-09] MEDS: amLODIPine BESYLATE 5 MG TABLET (FP) GT SCH ×2 (10:45→12:14)
[2023-01-09] MEDS: NYSTATIN/TRIAMCINOLONE TOPICAL CREAM 15 GM TUBE TP SCH ×2 (10:45→22:49)
[2023-01-09] MEDS: COLLAGENASE CLOSTRIDIUM HIST. 30 GRAMS TUBE TP SCH ×2 (10:45→22:50)
[2023-01-09] MEDS: VITAMIN B COMP W-C 1 EA TABLET (NEPHRO-VITE) GT SCH ×2 (10:45→12:14)
[2023-01-09] MEDS ORDERED: ALBUTEROL SO4 0.083% IH SOL 2.5 MG/3 ML VIAL.NEB. NEB PRN (17:23)
[2023-01-09] MEDS: OCULAR LUBRICANT OPHTHALMIC OINTMENT 7 GM TUBE OU SCH (22:49)
[2023-01-10] MEDS: INSULIN SLIDING SCALE (NOVOLOG) 1 VIAL SQ SCH ×4 (06:05→23:33)
[2023-01-10 08:56] LABS: HEMATOCRIT 31.7 % (32.4-45.2); HEMOGLOBIN 10.4 GM/dL (10.7-15.3); MCH 28.2 pg (25.7-33.7); MCHC 32.7 g/dl (32.0-36.0); MEAN CELL VOLUME 86.3 fl (80-96); PLATELET COUNT 250 10^3/uL (134-434); RBC 3.67 M/mm3 (3.60-5.2); RDW 16.1 % (11.6-15.6); WHITE BLOOD COUNT 12.4 K/mm3 (4.0-10.0)
[2023-01-10 09:17] LABS: POTASSIUM 3.1 mmol/L (3.5-5.1)
[2023-01-10 09:38] LABS: CALCIUM 8.8 mg/dL (8.5-10.1)
[2023-01-10 09:41] LABS: CREATININE 2.8 mg/dL (0.55-1.3)
[2023-01-10 09:43] LABS: TOT PROT 6.1 g/dl (6.4-8.2)
[2023-01-10 09:44] LABS: BILIRUBIN,TOTAL 0.4 mg/dL (0.2-1)
[2023-01-10 09:54] LABS: ALBUMIN 2.2 g/dl (3.4-5.0); ANISOCYTOSIS 1+; MACROCYTOSIS 0
[2023-01-10] MEDS: POLYETHYLENE GLYCOL (HEALTHYLAX) 3350 17 GM PACKET GT SCH ×2 (10:57→22:57)
[2023-01-10] MEDS: VITAMIN B COMP W-C 1 EA TABLET (NEPHRO-VITE) GT SCH (10:58)
[2023-01-10] MEDS: COLLAGENASE CLOSTRIDIUM HIST. 30 GRAMS TUBE TP SCH ×2 (10:58→21:54)
[2023-01-10] MEDS: AMINO ACIDS/PROTEIN HYDROLYS 30 ML LIQUID.PKT GT SCH ×2 (10:58→17:50)
[2023-01-10] MEDS: amLODIPine BESYLATE 5 MG TABLET (FP) GT SCH (10:58)
[2023-01-10] MEDS: NYSTATIN/TRIAMCINOLONE TOPICAL CREAM 15 GM TUBE TP SCH ×2 (10:58→22:58)
[2023-01-10] MEDS ORDERED: POTASSIUM CHLORIDE TABS 10 MEQ TABLET.ER (FP) PO ONE (12:12)
[2023-01-10] MEDS ORDERED: SODIUM CHLORIDE 250 ML IV PRN (12:12)
[2023-01-10] MEDS: OCULAR LUBRICANT OPHTHALMIC OINTMENT 7 GM TUBE OU SCH (22:04)
[2023-01-10] MEDS ORDERED: INSULIN (NOVOLOG) ASPART 100 UNITS/ML 10ML VIAL ONE (23:42)
[2023-01-11] MEDS: INSULIN SLIDING SCALE (NOVOLOG) 1 VIAL SQ SCH ×4 (06:43→22:22)
[2023-01-11] MEDS ORDERED: HEPARIN NA (PORCINE) 5,000 UNITS/ML 1ML VIAL IVPUSH ONE (08:00)
[2023-01-11] MEDS ORDERED: EPOETIN ALFA-EPBX 20,000 UNIT/ML VIAL IVPUSH ONE (08:30)
[2023-01-11] MEDS: HEPARIN NA (PORCINE) 5,000 UNITS/ML 1ML VIAL IVPUSH SCH ×2 (09:45→15:12)
[2023-01-11 10:19] LABS: HEMATOCRIT 31.8 % (32.4-45.2); HEMOGLOBIN 10.5 GM/dL (10.7-15.3); MCH 28.7 pg (25.7-33.7); MCHC 32.9 g/dl (32.0-36.0); MEAN CELL VOLUME 87.2 fl (80-96); MEAN PLT VOLUME 6.3 fl (7.5-11.1); PLATELET COUNT 277 10^3/uL (134-434); RBC 3.64 M/mm3 (3.60-5.2); WHITE BLOOD COUNT 13.3 K/mm3 (4.0-10.0)
[2023-01-11] MEDS: AMINO ACIDS/PROTEIN HYDROLYS 30 ML LIQUID.PKT GT SCH ×2 (10:27→16:53)
[2023-01-11 10:43] LABS: POTASSIUM 3.2 mmol/L (3.5-5.1)
[2023-01-11 10:49] LABS: ALBUMIN 2.3 g/dl (3.4-5.0); BLOOD UREA NITROGEN 83.8 mg/dL (7-18); CALCIUM 8.9 mg/dL (8.5-10.1)
[2023-01-11 10:52] LABS: CREATININE 3.9 mg/dL (0.55-1.3)
[2023-01-11 10:53] LABS: BILIRUBIN,TOTAL 0.4 mg/dL (0.2-1); TOT PROT 6.3 g/dl (6.4-8.2)
[2023-01-11] MEDS: POLYETHYLENE GLYCOL (HEALTHYLAX) 3350 17 GM PACKET GT SCH ×2 (11:20→22:22)
[2023-01-11] MEDS: VITAMIN B COMP W-C 1 EA TABLET (NEPHRO-VITE) GT SCH (11:20)
[2023-01-11] MEDS: COLLAGENASE CLOSTRIDIUM HIST. 30 GRAMS TUBE TP SCH ×2 (16:53→22:26)
[2023-01-11] MEDS: NYSTATIN/TRIAMCINOLONE TOPICAL CREAM 15 GM TUBE TP SCH ×2 (16:53→22:28)
[2023-01-11] MEDS: OCULAR LUBRICANT OPHTHALMIC OINTMENT 7 GM TUBE OU SCH (22:26)
[2023-01-12] MEDS: INSULIN SLIDING SCALE (NOVOLOG) 1 VIAL SQ SCH ×4 (06:45→22:55)
[2023-01-12] MEDS: MIDODRINE HCL 5 MG TABLET GT SCH (10:31)
[2023-01-12] MEDS: AMINO ACIDS/PROTEIN HYDROLYS 30 ML LIQUID.PKT GT SCH ×2 (10:31→17:04)
[2023-01-12] MEDS: POLYETHYLENE GLYCOL (HEALTHYLAX) 3350 17 GM PACKET GT SCH ×2 (10:31→22:32)
[2023-01-12] MEDS: VITAMIN B COMP W-C 1 EA TABLET (NEPHRO-VITE) GT SCH (10:31)
[2023-01-12] MEDS: COLLAGENASE CLOSTRIDIUM HIST. 30 GRAMS TUBE TP SCH ×2 (10:32→22:33)
[2023-01-12] MEDS: NYSTATIN/TRIAMCINOLONE TOPICAL CREAM 15 GM TUBE TP SCH ×2 (10:32→22:33)
[2023-01-12] MEDS ORDERED: INSULIN (NOVOLOG) ASPART 100 UNITS/ML 10ML VIAL ONE (17:05)
[2023-01-12] MEDS: OCULAR LUBRICANT OPHTHALMIC OINTMENT 7 GM TUBE OU SCH (22:35)
[2023-01-13] MEDS: INSULIN SLIDING SCALE (NOVOLOG) 1 VIAL SQ SCH ×4 (06:00→22:06)
[2023-01-13] MEDS: AMINO ACIDS/PROTEIN HYDROLYS 30 ML LIQUID.PKT GT SCH ×2 (09:14→17:19)
[2023-01-13] MEDS: POLYETHYLENE GLYCOL (HEALTHYLAX) 3350 17 GM PACKET GT SCH ×2 (09:16→22:02)
[2023-01-13] MEDS ORDERED: HEPARIN NA (PORCINE) 5,000 UNITS/ML 1ML VIAL IVPUSH ONE (10:00)
[2023-01-13 10:04] LABS: HEMATOCRIT 30.2 % (32.4-45.2); HEMOGLOBIN 9.8 GM/dL (10.7-15.3); MCH 28.3 pg (25.7-33.7); MCHC 32.4 g/dl (32.0-36.0); MEAN CELL VOLUME 87.4 fl (80-96); PLATELET COUNT 285 10^3/uL (134-434); RBC 3.46 M/mm3 (3.60-5.2); RDW 16.5 % (11.6-15.6); WHITE BLOOD COUNT 12.2 K/mm3 (4.0-10.0)
[2023-01-13] MEDS: HEPARIN NA (PORCINE) 5,000 UNITS/ML 1ML VIAL IVPUSH SCH ×3 (10:10→12:23)
[2023-01-13] MEDS ORDERED: SODIUM CHLORIDE 250 ML IV PRN (10:30)
[2023-01-13] MEDS ORDERED: EPOETIN ALFA-EPBX 20,000 UNIT/ML VIAL SQ ONE (10:30)
[2023-01-13] MEDS: ALBUMIN HUMAN 25% 12.5 GM/50 ML VIAL IV SCH ×5 (10:30→12:23)
[2023-01-13 10:35] LABS: POTASSIUM 3.6 mmol/L (3.5-5.1)
[2023-01-13 10:37] LABS: BLOOD UREA NITROGEN 70.9 mg/dL (7-18)
[2023-01-13 10:38] LABS: CALCIUM 8.7 mg/dL (8.5-10.1)
[2023-01-13 10:43] LABS: CREATININE 3.3 mg/dL (0.55-1.3)
[2023-01-13 10:44] LABS: BILIRUBIN,TOTAL 0.5 mg/dL (0.2-1); TOT PROT 5.7 g/dl (6.4-8.2)
[2023-01-13] MEDS: VITAMIN B COMP W-C 1 EA TABLET (NEPHRO-VITE) GT SCH (12:02)
[2023-01-13] MEDS: COLLAGENASE CLOSTRIDIUM HIST. 30 GRAMS TUBE TP SCH ×2 (12:03→22:01)
[2023-01-13] MEDS: MIDODRINE HCL 5 MG TABLET GT SCH (12:03)
[2023-01-13] MEDS: NYSTATIN/TRIAMCINOLONE TOPICAL CREAM 15 GM TUBE TP SCH ×2 (12:05→22:01)
[2023-01-13] MEDS: OCULAR LUBRICANT OPHTHALMIC OINTMENT 7 GM TUBE OU SCH (22:01)
[2023-01-14] MEDS ORDERED: INSULIN (NOVOLOG) ASPART 100 UNITS/ML 10ML VIAL ONE (06:30)
[2023-01-14] MEDS: INSULIN SLIDING SCALE (NOVOLOG) 1 VIAL SQ SCH ×4 (06:31→23:07)
[2023-01-14] MEDS: AMINO ACIDS/PROTEIN HYDROLYS 30 ML LIQUID.PKT GT SCH ×2 (08:30→17:36)
[2023-01-14] MEDS: POLYETHYLENE GLYCOL (HEALTHYLAX) 3350 17 GM PACKET GT SCH ×2 (09:38→21:38)
[2023-01-14] MEDS: VITAMIN B COMP W-C 1 EA TABLET (NEPHRO-VITE) GT SCH (10:18)
[2023-01-14] MEDS: COLLAGENASE CLOSTRIDIUM HIST. 30 GRAMS TUBE TP SCH ×2 (10:19→21:37)
[2023-01-14] MEDS: MIDODRINE HCL 5 MG TABLET GT SCH (10:20)
[2023-01-14] MEDS: NYSTATIN/TRIAMCINOLONE TOPICAL CREAM 15 GM TUBE TP SCH ×2 (10:20→21:37)
[2023-01-14] MEDS: OCULAR LUBRICANT OPHTHALMIC OINTMENT 7 GM TUBE OU SCH (21:38)
[2023-01-15] MEDS: INSULIN SLIDING SCALE (NOVOLOG) 1 VIAL SQ SCH ×4 (06:16→22:45)
[2023-01-15] MEDS: VITAMIN B COMP W-C 1 EA TABLET (NEPHRO-VITE) GT SCH (09:55)
[2023-01-15] MEDS: POLYETHYLENE GLYCOL (HEALTHYLAX) 3350 17 GM PACKET GT SCH ×2 (09:55→22:46)
[2023-01-15] MEDS: AMINO ACIDS/PROTEIN HYDROLYS 30 ML LIQUID.PKT GT SCH ×2 (09:55→17:03)
[2023-01-15] MEDS: NYSTATIN/TRIAMCINOLONE TOPICAL CREAM 15 GM TUBE TP SCH ×2 (09:56→22:48)
[2023-01-15] MEDS: MIDODRINE HCL 5 MG TABLET GT SCH (09:57)
[2023-01-15] MEDS: COLLAGENASE CLOSTRIDIUM HIST. 30 GRAMS TUBE TP SCH ×2 (11:40→22:47)
[2023-01-15] MEDS ORDERED: INSULIN (NOVOLOG) ASPART 100 UNITS/ML 10ML VIAL ONE ×2 (12:40→22:44)
[2023-01-15] MEDS: OCULAR LUBRICANT OPHTHALMIC OINTMENT 7 GM TUBE OU SCH (22:49)
[2023-01-16] MEDS: INSULIN SLIDING SCALE (NOVOLOG) 1 VIAL SQ SCH ×2 (07:39→14:34)
[2023-01-16] MEDS: HEPARIN NA (PORCINE) 5,000 UNITS/ML 1ML VIAL IVPUSH SCH ×3 (08:30→10:30)
[2023-01-16] MEDS ORDERED: HEPARIN NA (PORCINE) 5,000 UNITS/ML 1ML VIAL IVPUSH ONE (08:30)
[2023-01-16] MEDS ORDERED: EPOETIN ALFA-EPBX 10,000 UNIT/ML VIAL IVPUSH ONE (08:30)
[2023-01-16] MEDS: SODIUM CHLORIDE 250 ML IV PRN ×2 (08:45→11:45)
[2023-01-16] MEDS: AMINO ACIDS/PROTEIN HYDROLYS 30 ML LIQUID.PKT GT SCH (09:09)
[2023-01-16] MEDS: POLYETHYLENE GLYCOL (HEALTHYLAX) 3350 17 GM PACKET GT SCH (09:10)
[2023-01-16] MEDS: VITAMIN B COMP W-C 1 EA TABLET (NEPHRO-VITE) GT SCH (09:11)
[2023-01-16 11:55] VITALS: PULSE 89
[2023-01-16 13:59] VITALS: BP 126/75; RESP 20; TEMP 98.7
[2023-01-16] MEDS: COLLAGENASE CLOSTRIDIUM HIST. 30 GRAMS TUBE TP SCH (14:33)
[2023-01-16] MEDS: NYSTATIN/TRIAMCINOLONE TOPICAL CREAM 15 GM TUBE TP SCH (14:33)
[2023-01-16] MEDS: MIDODRINE HCL 5 MG TABLET GT SCH (14:33)
== END 2023-01-16 15:22 | DRG 314 ==
LOC: JER 14:46 → JERBED 18:51 → J8W 01-02 19:17 → OBSVTOIN 01-03 09:26
PROVIDERS: ADMIT Internal Medicine; ATTEND Family Medicine
PROC: 5A1D70Z Performance of Urinary Filtration, Intermittent, Less than 6 Hours Per Day (ICD-10-PCS; principal; 2023-01-02)
PROC: 5A1D70Z Performance of Urinary Filtration, Intermittent, Less than 6 Hours Per Day (ICD-10-PCS; 2023-01-05)
PROC: 02PYX3Z Removal of Infusion Device from Great Vessel, External Approach (ICD-10-PCS; 2023-01-05)
PROC: 02HV33Z Insertion of Infusion Device into Superior Vena Cava, Percutaneous Approach (ICD-10-PCS; 2023-01-05)
PROC: 5A1D70Z Performance of Urinary Filtration, Intermittent, Less than 6 Hours Per Day (ICD-10-PCS; 2023-01-08)
PROC: 5A1D70Z Performance of Urinary Filtration, Intermittent, Less than 6 Hours Per Day (ICD-10-PCS; 2023-01-09)
PROC: 30233N1 Transfusion of Nonautologous Red Blood Cells into Peripheral Vein, Percutaneous Approach (ICD-10-PCS; 2023-01-09)
PROC: 5A1D70Z Performance of Urinary Filtration, Intermittent, Less than 6 Hours Per Day (ICD-10-PCS; 2023-01-11)
PROC: 5A1D70Z Performance of Urinary Filtration, Intermittent, Less than 6 Hours Per Day (ICD-10-PCS; 2023-01-13)
PROC: 5A1D70Z Performance of Urinary Filtration, Intermittent, Less than 6 Hours Per Day (ICD-10-PCS; 2023-01-16)
DX: T82.868A Thrombosis due to vascular prosthetic devices, implants and grafts, initial encounter (principal); L89.154 Pressure ulcer of sacral region, stage 4; N18.6 End stage renal disease; I69.354 Hemiplegia and hemiparesis following cerebral infarction affecting left non-dominant side; I12.0 Hypertensive chronic kidney disease with stage 5 chronic kidney disease or end stage renal disease; Y83.8 Other surgical procedures as the cause of abnormal reaction of the patient, or of later complication, without mention of misadventure at the time of the procedure; E78.5 Hyperlipidemia, unspecified; I48.0 Paroxysmal atrial fibrillation; E11.65 Type 2 diabetes mellitus with hyperglycemia; E11.22 Type 2 diabetes mellitus with diabetic chronic kidney disease; Z99.2 Dependence on renal dialysis; F41.9 Anxiety disorder, unspecified; D64.9 Anemia, unspecified
CPT/HCPCS: 36415; 36430; 71045-TC-FY; 74018-TC-FY; 80048; 80053; 82728; 82962; 83540; 83550; 83735; 84100; 85025; 85027; 85610; 85730; 86705; 86803; 86850; 86900; 86901; 86922; 87340; 87517; 87635; 93005; 93010; 99283-25; 99285-25; C1750; G0378; J1644; P9047; P9058; Q5106